=== PATIENT | female | born 1950 | race Caucasian/White ===

== ENCOUNTER → 2017-08-30 | Outpatient (CLI) | payer MEDICARE ==
[~2017-08-30] MED LIST: CARVEDILOL3.125 MG PO; COUMADIN6 MG PO; FIORINAL 50-321 EACH PO; LIVALO2 MG PO
--- NOTE | 2017-08-30 12:49 | Diagnostic Imaging Report ---
Exam: Head CT without contrast History: Trauma, headache Comparison studies: Head CTs 12/3107/31/2016 and 04/09/2012 Technique: Axial images were obtained from the skull base to the vertex. Coronal and sagittal images reconstructed from the axial data. Intravenous contrast: None Findings: Scalp: No abnormalities. Previous right supraorbital/superolateral paranasal soft tissue hematoma has resolved. Bones: No fractures, blastic or lytic lesions. Brain sulci: Appropriate for age. Ventricles: Normal in size and configuration. No hydrocephalus. Extra-axial spaces: No masses, no fluid collection. Parenchyma: No mass, acute hemorrhage or acute or chronic cortical vascular insults. Sellar/suprasellar region: No abnormalities. Craniocervical junction: Patent foramen magnum. No Chiari one malformation. Incidental findings: Atherosclerotic calcifications in the carotid siphons and in the intradural vertebral arteries. IMPRESSION: No acute abnormalities. Signed by: Dr. Humble Monroy M.D. on 08/30/2017 12:46 PM
== END ==
LOC: CT 10:29
PROVIDERS: ATTEND Family Medicine
DX: G44.309 Post-traumatic headache, unspecified, not intractable (principal)
CPT/HCPCS: 70450

== ENCOUNTER 2019-01-06 14:22 | Emergency (ER) | payer MEDICARE ==
[~2019-01-06] VITALS: Ht 154.9 cm; Wt 97.1 kg
--- OUTSIDE RECORDS SUMMARY | 2019-01-06 14:24 | XMS REPORT ---
Author Author [facility] Address Unknown Phone Unavailable Care Team Providers Care Twister Tender Name Role Phone CHINEDU SHAW Unavailable Unavailable Pauly CHAMPION Unavailable Unavailable Problems This patient has no known problems. Allergies, Adverse Reactions, Alerts This patient has no known allergies or adverse reactions. Medications This patient has no known medications. Results Test Description Test Time Test Comments Text Results Atomic Results Result Comments DIAG MAMM RIGHT JUAN CAD DIGITAL 2018-09-03 10:35:45 - DIAG MAMM RIGHT JUAN CAD DIGITALUNILATERAL RIGHT DIGITAL DIAGNOSTIC MAMMOGRAM 3D/2D WITH CAD: 09/03/2018CLINICAL: Recall from screening. Digital breast tomosynthesis was performed in addition to routine CC and MLO views. Current mammographic images were evaluated by either a [employer] M-Vu or a [employer] ImageChecker CAD (computer aided detection system). Comparison is made to exams dated 08/05/2018 m ammogram, 08/05/2017 mammogram, and 07/31/2016 mammogram - [facility]. 2-D and 3-D diagnostic mammogram of the right breast. The previously seen asymmetry centrally in the retroareolar plane of the right breast partially compresses into the surrounding fibroglandular elements. No underlying architectural distortion or suspicious microcalcifications identified.INCOMPLETE ASSESSMENT: ADDITIONAL IMAGING EVALUATION RECOMMENDEDIndeterminate mammographic findings in the right breast. Additional evaluation with right breast ultrasound is requested and currently in progress.- BREAST ULTRASOUND RIGHTULTRASOUND OF RIGHT BREAST AND RIGHT AXILLA: 09/03/2018Comparison is made to exams dated 08/05/2018 mammogram, 08/05/2017 mammogram, and 07/31/2016 mammogram - [facility]. Ultrasound of the right breast and axilla was performed. Molina scale images of the real-time examination were reviewed. Mild ductal ectasia at the nipple areola complex was seen. No intraductal mass was seen. No additional sonographic findings are seen within the right breast or axilla.IMPRESSION: PROBABLY BENIGN - FOLLOW-UP RECOMMENDEDBenign findings in the right breast ultrasound. No discrete ultrasou nd correlate for mammographic findings. Mammographic findings may represent summation artifact. A follow-up mammogram and an ultrasound in 6 months is recommended to demonstrate stability, and to exclude an evolving process. Ruy cohen/:09/03/2018 10:35:45 Vision Impaired Teacher: Ashley Wallace , [facility] sent: Short Term Follow Up Mammogram BI-RADS: 0 Indeterminate Ultrasound BI-RADS: 3 Probably benign BREAST ULTRASOUND RIGHT 2018-09-03 10:35:45 - DIAG MAMM RIGHT JUAN CAD DIGITALUNILATERAL RIGHT DIGITAL DIAGNOSTIC MAMMOGRAM 3D/2D WITH CAD: 09/03/2018CLINICAL: Recall from screening. Digital breast tomosynthesis was performed in addition to rout ine CC and MLO views. Current mammographic images were evaluated by either a [employer] M-Vu or a [employer]er CAD (computer aided detection system). Comparison is made to exams dated 08/05/2018 mammogram, 08/05/2017 mammogram, and 07/31/2016 mammogram - [facility]. 2-D and 3-D diagnostic mammogram of the right breast. The previously seen asymmetry centrally in the retroareolar plane of the right breast partially compresses into the surrounding fibroglandular elements. No underlying architectural distortion or suspicious microcalcifications identified.INCOMPLETE ASSESSMENT: ADDITIONAL IMAGING EVALUATION RECOMMENDEDIndeterminate mammographic findings in the right breast. Additional evaluation with right breast ultrasound is requested and currently in progress.- BREAST ULTRASOUND RIGHTULTRASOUND OF RIGHT BREAST AND RIGHT AXILLA: 09/03/2018Comparison is made to exams dated 08/05/2018 mammogram, 08/05/2017 mammogram, and [facility]/2016 [facility]. Ultrasound of the right breast and axilla was performed. Molina scale images of the real-time examination were reviewed. Mild ductal ectasia at the nipple areola complex was seen. No intraductal mass was seen. No additional sonographic findings are seen within the right breast or axilla.IMPRESSION: PROBABLY BENIGN - FOLLOW-UP RECOMMENDEDBenign findings in the right breast ultrasound. No discrete ultrasou nd correlate for mammographic findings. Mammographic findings may represent summation artifact. A follow-up mammogram and an ultrasound in 6 months is recommended to demonstrate stability, and to exclude an evolving process. Ruy cohen/:09/03/2018 10:35:45 Vision Impaired Teacher: Ashley Wallace , [facility]OMERYletter sent: Short Term Follow Up Mammogram BI-RADS: 0 Indeterminate Ultrasound BI-RADS: 3 Probably benign SCR MAMM BILATERAL JUAN CAD DIGITAL 2018-08-07 10:30:38 - SCR MAMM BILATERAL JUAN CAD DIGITALBILATERAL DIGITAL SCREENING MAMMOGRAM 3D/2D WITH CAD: 08/05/2018CLINICAL: Asymptomatic. Digital breast tomosynthesis was performed in addition to routine CC and MLO views. Current mammographic images were evaluated by either a [employer]Vu or a [employer] CAD (computer aided detection system). Comparison is made to exams dated 08/05/2017 mammogram, 07/31 mammogram, and 06/15/2015 mammogram - [facility]. There are scattered fibroglandular tissues in both breasts. There is a 1 cm oval asymmetry in the right breast, middle depth, in the retroareolar plane seen on the mediolateral oblique view only, 7 cm from the nipple (RMLO slice 67). There are postsurgical changes in the upper outer right breast from prior excisional biopsy. No other significant masses, calcifications, or other findings are seen in either breast. IMPRESSION: INCOMPLETE ASSESSMENT: ADDITIONAL IMAGING EVALUATION RECOMMENDEDThe 1 cm asymmetry in the retroareolar plane in the middle depth of the right breast is indeterminate. Additional views with possible ultrasound are recommended. Laureen ryder/:08/07/2018 10:30:38 Vision Impaired Teacher: Rosio Tirado , [facility]letter sent: Additional Imaging Mammogram BI-RADS: 0 Indeterminate BREAST ULTRASOUND RIGHT 2018-02-25 08:48:44 - DIAG MAMM RIGHT JUAN CAD DIGITALUNILATERAL RIGHT DIGITAL DIAGNOSTIC MAMMOGRAM 3D/2D WITH CAD: 02/25/2018CLINICAL: 6 Month follow-up. Digital breast tomosynthesis was performed in addition to routine CC and MLO views. Current mammographic images were evaluated by either a [employer] M- Vu or a [employer] ImageChecker CAD (computer aided detection system). Comparison is made to exams dated 08/13/2017 mammogram, 08/05/2017 mammogram, and 07[facility]31/2016 [facility]. There are scattered fibroglandular tissues in the right breast. Mild architectural distortion is again noted in the upper outer quadrant, consistent with postsurgical scarring.Benign secretory calcifications are scattered throughout.No suspicious mass, architectural distortion, malignant type calcification, or lymph node abnormality detected. INCOMPLETE ASSESSMENT: ADDITIONAL IMAGING EVALUATION RECOMMENDEDCorrelation with right breast ultrasound follows as below.- BREAST ULTRASOUND RIGHTULTRASOUND OF RIGHT BREAST AND RIGHT AXILLA: 02/25/2018Comparison is made to exams dated 08/13/2017 mammogram, 08/05/2017 mammogram, and 07/31/2016 mammogram - [facility]. Color flow ultrasound of the right breast and axilla was performed. Molina scale images of the real-time examination were reviewed. Mild ductal ectasia is again noted. No suspicious solid or cystic lesions are identified.No abnormalities were seen sonographically in the right axilla. IMPRESSION: BENIGN - FOLLOW-UP RECOMMENDEDThere is no sonographic evidence of malignancy. Recommend resuming routine screening schedule. Patient will be due for her annual screening exam in 6 months.Marce Pineda M.D. yaq/:02/25/2018 08:48:44 Vision Impaired Teacher: Val Castano , [facility]letter sent: BIRADS 1-2 Combo FU Letter Mammogram BI-RADS: 0 Indeterminate Ultrasound BI-RADS: 2 Benign DIAG MAMM RIGHT JUAN CAD DIGITAL 2018-02-25 08:48:44 - DIAG MAMM RIGHT JUAN CAD DIGITALUNILATERAL RIGHT DIGITAL DIAGNOSTIC MAMMOGRAM 3D/2D WITH CAD: 02/25/2018CLINICAL: 6 Month follow-up. Digital breast tomosynthesis was performed in addition to routine CC and MLO views. Current mammographic images were evaluated by either a [employer] M-Vu or a [employer] ImageChecker CAD (computer aided detection system). Comparison is made to exams dated 08/13/2017 mammogram, 08/05/2017 mammogram, and 07/31/2016 mammogram - [facility] There are scattered fibroglandular tissues in the right breast. Mild architectural distortion is again noted in the upper outer quadrant, consistent with postsurgical scarring.Benign secretory calcifications are scattered throughout.No suspicious mass, architectural distortion, malignant type calcification, or lymph node abnormality detected. INCOMPLETE ASSESSMENT: ADDITIONAL IMAGING EVALUATION RECOMMENDEDCorrelation with right breast ultrasound follows as below.- BREAST ULTRASOUND RIGHTULTRASOUND OF RIGHT BREAST AND RIGHT AXILLA: 02/25/2018Comparison is made to exams dated 08/13/2017 mammogram, 08/05/2017 mammogram, and 07/31/2016 mammogram - [facility] Color flow ultrasound of the right breast and axilla was performed. Molina scale images of the real-time examination were reviewed. Mild ductal ectasia is again noted. No suspicious solid or cystic lesions are identified.No abnormalities were seen sonographically in the right axilla. IMPRESSION: BENIGN - FOLLOW-UP RECOMMENDEDThere is no sonographic evidence of malignancy. Recommend resuming routine screening schedule. Patient will be due for her annual screening exam in 6 months.Marce Pineda M.D. yaq/:02/25/2018 08:48:44 Vision Impaired Teacher: Val Castano , [facility] sent: BIRADS 1-2 Combo FU Letter Mammogram BI-RADS: 0 Indeterminate Ultrasound BI-RADS: [address] BRAIN WO 2017-08-30 12:42:00 [place] [id number] Patient Name: ANNE RIOS MR #: [id number] : 1950 Age/Sex: 66/F Req #: [id number] Adm Physician: Ordered by: CHINEDU SHAW MD Report #: [id number] Location: [place] Room/Bed: Procedure: [id number] CT/CT BRAIN WO Exam Date: 08/30/17 Exam Time: 1055 REPORT STATUS: Signed ADDENDUM #1 Dose modulation, iterative reconstruction, and/or weight based adjustment of the mA/kV was utilized to reduce the radiation dose to as low as reasonably achievable. Signed by: Dr. Harsh Monroy M.D. on 10/01/2017 4:21 PM ORIGINAL REPORT Exam: Head CT without contrast History: Trauma, headache Comparison studies: Head CTs 12/3107/31/2016 and 04/09/2012 Technique: Axial images were obtained from the skull base to the vertex. Coronal and sagittal images reconstructed from the axial data. Intravenous contrast: None Findings: Scalp: No abnormalities. Previous right supraorbital/superolateral paranasal soft tissue hematoma has resolved. Bones: No fractures, blastic or lytic lesions. Brain sulci: Appropriate for age. Ventricles: Normal in size and configuration. No hydrocephalus. Extra-axial spaces: No masses, no fluid collection. Parenchyma: No mass, acute hemorrhage or acute or chronic cortical vascular insults. Sellar/suprasellar region: No abnormalities. Craniocervical junction: Patent foramen magnum. No Chiari one malformation. Incidental findings: Atherosclerotic calcifications in the carotid siphons an d in the intradural vertebral arteries. IMPRESSION: No acute abnormalities. Signed by: Dr. Harsh Monroy M.D. on 08/30/2017 12:46 PM Dictated By: HARSH MONROY MD [id number] Transcribed By: CHRIS on 08/30/17 1246 COPY TO: CHINEDU SHAW MD CT BRAIN WO [place] [address] Patient Name: ANNE RIOS MR #: [id number] : 1950 Age/Sex: 66/F Req #: [id number] Adm Physician: Ordered by: KEVIN CHAMPION MD Report #: [id number] Location: Room/Bed: Procedure: [id number] CT/CT BRAIN WO Exam Date: 12/31/16 Exam Time: 956 REPORT STATUS: Signed Exam: Head CT without contrast History: Syncope, trauma Comparison studies: Head CT 04/09/2012. Technique: Axial images were obtained from the skull base to the vertex. Coronal and sagittal images reconstructed from the axial data. Intravenous contrast: None Findings: Soft tissues: Right supraorbital and superolateral periorbital soft tissue hematoma. Bones: No fractures, blastic or lytic lesions. Brain sulci: Appropriate for age. Ventricles: Normal in size and configuration. No hydrocephalus. Extra- axial spaces: No masses, no fluid collection. Parenchyma: No mass, acute hemorrhage or acute cortical vascular insults. A few scattered subtle hypodensities in the supratentorial white matter are nonspecific and most compatible with chronic small vessel ischemic changes. Incidental anatomical variant prominent perivascular space along the inferior margin of the right lentiform nucleus Sellar/suprasellar region: No abnormalities. Craniocervical junction: Patent foramen magnum. No Chiari one malformation. Incidental findings: Atherosclerotic calcifications in the carotid siphons and intradural vertebral arteries. IMPRESSION: 1. Right supraorbital/superolateral periorbital soft tissue hematoma without underlying fracture. 2. No acute intracranial abnormalities. 3. Mild supratentorial chronic microvascular ischemic changes. Signed by: Dr. Harsh Monroy M.D. on 12/31/2016 10:19 AM Dictated By: HARSH MONROY MD 1019 Transcribed By: CHRIS on 12/31/161018 COPY TO: KEVIN CHAMPION MD
[2019-01-06 16:17] LABS: BASOPHILS # (AUTO) 0.1 (0.0-0.1); BASOPHILS % 0.7 % (0.0-1.0); EOSINOPHILS # (AUTO) 0.1 (0.0-0.4); EOSINOPHILS % 1.5 % (0.0-6.0); HEMATOCRIT 39.8 % (34.2-44.1); HEMOGLOBIN 13.2 g/dL (12.0-16.0); LYMPHOCYTES # (AUTO) 1.7 (1.0-3.2); LYMPHOCYTES % 22.7 % (18.0-39.1); MEAN CORPUSCULAR HEMOGLOBIN 28.9 pg (28-32); MEAN CORPUSCULAR HGB CONC 33.2 g/dL (31-35); MEAN CORPUSCULAR VOLUME 87.1 fL (81-99); MONOCYTES # (AUTO) 0.6 (0.2-0.8); MONOCYTES % 7.8 % (4.4-11.3); NEUTROPHILS % 66.9 % (38.7-80.0); PLATELET COUNT 172 x10e3/uL (140-360); RED BLOOD COUNT 4.57 x10e6/uL (3.6-5.1); RED CELL DISTRIBUTION WIDTH 12.9 % (11.7-14.4)
[2019-01-06 16:29] LABS: PARTIAL THROMBOPLASTIN TIME 54.7 seconds (23.8-35.5)
[2019-01-06 16:30] LABS: INR 5.4; PROTHROMBIN TIME 50.1 seconds (11.9-14.5)
[2019-01-06 16:37] LABS: ALBUMIN 3.8 g/dL (3.5-5.0); ALBUMIN/GLOBULIN RATIO 1.1 (0.8-2.0); ANION GAP 11.5 mmol/L (8-16); CALCIUM 10.1 mg/dL (8.4-10.2); CREATININE, SERUM 0.96 mg/dL (0.57-1.11); POTASSIUM 3.5 mmol/L (3.5-5.1)
== END 2019-01-06 19:35 | disposition home or self-care (01) ==
LOC: ER 14:22
DX: D68.32 Hemorrhagic disorder due to extrinsic circulating anticoagulants (principal)
CPT/HCPCS: 36415; 80053; 85025; 85610; 85730; 86900; 99283

== ENCOUNTER → 2019-01-07 | Outpatient (CLI) | payer MEDICARE ==
[2019-01-07 10:57] LABS: INR 5.78; PROTHROMBIN TIME 52.8 seconds (11.9-14.5)
== END ==
LOC: RAD 09:42
PROVIDERS: ATTEND Family Medicine
DX: Z79.01 Long term (current) use of anticoagulants (principal)
CPT/HCPCS: 36415; 85610

== ENCOUNTER 2019-01-08 05:14 | Emergency (ER) | payer MEDICARE ==
[~2019-01-08] VITALS: Ht 154.9 cm; Wt 97.1 kg
[2019-01-08 05:39] LABS: BASOPHILS % 0.7 % (0.0-1.0); EOSINOPHILS # (AUTO) 0.1 (0.0-0.4); EOSINOPHILS % 1.5 % (0.0-6.0); HEMOGLOBIN 12.8 g/dL (12.0-16.0); LYMPHOCYTES # (AUTO) 1.7 (1.0-3.2); LYMPHOCYTES % 28.1 % (18.0-39.1); MEAN CORPUSCULAR HEMOGLOBIN 28.8 pg (28-32); MEAN CORPUSCULAR HGB CONC 32.8 g/dL (31-35); MEAN CORPUSCULAR VOLUME 87.8 fL (81-99); MONOCYTES # (AUTO) 0.5 (0.2-0.8); MONOCYTES % 7.6 % (4.4-11.3); NEUTROPHILS # (AUTO) 3.6 (2.1-6.9); NEUTROPHILS % 61.6 % (38.7-80.0); PLATELET COUNT 158 x10e3/uL (140-360); RED BLOOD COUNT 4.44 x10e6/uL (3.6-5.1)
[2019-01-08 05:50] LABS: INR 2.72; PROTHROMBIN TIME 29.6 seconds (11.9-14.5)
[2019-01-08 05:51] LABS: PARTIAL THROMBOPLASTIN TIME 41.5 seconds (23.8-35.5)
[2019-01-08 06:03] LABS: ALANINE AMINOTRANSFERASE 17 IU/L (0-55); ALBUMIN 3.4 g/dL (3.5-5.0); ALBUMIN/GLOBULIN RATIO 1.1 (0.8-2.0); ALKALINE PHOSPHATASE 92 IU/L (40-150); ANION GAP 13.9 mmol/L (8-16); BLOOD UREA NITROGEN 15 mg/dL (7-26); BUN/CREATININE RATIO 17 (6-25); CARBON DIOXIDE 21 mmol/L (22-29); CHLORIDE 108 mmol/L (98-107); CREATINE KINASE 191 IU/L (29-168); CREATININE, SERUM 0.88 mg/dL (0.57-1.11); EST GLOMERULAR FILTRATION RATE > 60 ML/MIN (60-); GLUCOSE 101 mg/dL (74-118); POTASSIUM 3.9 mmol/L (3.5-5.1); SODIUM 139 mmol/L (136-145)
[2019-01-08 06:04] LABS: BILIRUBIN,URINE NEGATIVE (NEGATIVE); CLARITY,URINE CLEAR (CLEAR); KETONES,URINE NEGATIVE (NEGATIVE); LEUKOCYTE ESTERASE ,URINE SMALL (NEGATIVE); NITRITE,URINE NEGATIVE (NEGATIVE); PROTEIN,URINE DIPSTICK NEGATIVE (NEGATIVE); URINE UROBILINOGEN 0.2 mg/dL (0.2 - 1)
[2019-01-08 06:09] LABS: COLOR,URINE STRAW (YELLOW)
[2019-01-08 06:29] LABS: BACTERIA,URINE RARE /HPF; EPITHELIAL CELLS,URINE RARE /LPF; RBC,URINE 0-5 /HPF (0-5); WBC,URINE (MAN) 0-5 /HPF (0-5)
--- NOTE | 2019-01-08 06:49 | Diagnostic Imaging Report ---
EXAMINATION: CHEST SINGLE (PORTABLE) INDICATION: SOB, palpitations. COMPARISON: None FINDINGS: TUBES and LINES: None. LUNGS: Lungs are well inflated. There is no evidence of pneumonia or pulmonary edema. PLEURA: No pleural effusion or pneumothorax. HEART AND MEDIASTINUM: The cardiomediastinal silhouette is unremarkable. BONES AND SOFT TISSUES: No acute osseous abnormality. Status post median sternotomy. UPPER ABDOMEN: No free air under the diaphragm. IMPRESSION: No acute radiographic abnormality. Signed by: Dr. Miguel Allen MD on 01/08/2019 6:45 AM
[2019-01-08 07:01] VITALS: BP 146/76
== END 2019-01-08 07:11 | disposition home or self-care (01) ==
LOC: ER 05:14
DX: R00.2 Palpitations (principal); I10 Essential (primary) hypertension; G43.909 Migraine, unspecified, not intractable, without status migrainosus; E78.5 Hyperlipidemia, unspecified; F41.9 Anxiety disorder, unspecified; Z79.01 Long term (current) use of anticoagulants; Z95.2 Presence of prosthetic heart valve
CPT/HCPCS: 36415; 71045; 80053; 81001; 82550; 82553; 83880; 84484; 85025; 85610; 85730; 93005; 99284

== ENCOUNTER → 2019-11-04 | Outpatient (CLI) | payer MEDICARE ==
--- NOTE | 2019-11-04 13:44 | Diagnostic Imaging Report ---
Exam: Head CT without contrast History: Trauma, fall Comparison studies: Head CT 08/30/2017 12/31/2016. Technique: Axial images were obtained from the skull base to the vertex. Coronal and sagittal images reconstructed from the axial data. Dose modulation, iterative reconstruction, and/or weight based adjustment of the mA/kV was utilized to reduce the radiation dose to as low as reasonably achievable. Radiation dose: Total DLP: 921.4 mGy*cm. Estimated effective dose: DLP x 0.015 Intravenous contrast: None Findings: Scalp: No abnormalities. Bones: No fractures, blastic or lytic lesions. Brain sulci: Appropriate for age. Ventricles: Normal in size and configuration. No hydrocephalus. Extra-axial spaces: Focal 8 mm hyperdensity along the left anterior falx with not present on the prior head CT of 08/30/2017 and is most compatible with small acute hyperdense subdural hemorrhage which does not result in significant mass effect. No other mass or fluid collection. Parenchyma: No abnormal densities. No masses, hemorrhage, acute or chronic vascular insults. Sellar/suprasellar region: No abnormalities. Craniocervical junction: Patent foramen magnum. No Chiari one malformation. Incidental findings: Atherosclerotic calcifications in the carotid siphons and intradural vertebral arteries. IMPRESSION: 1. Small acute left frontal parafalcine subdural hemorrhage without significant mass effect. 2. No other acute intracranial abnormalities other changes from the prior head CT of 08/30/2017. Dr. Monroy discussed this critical finding with Dr. Bowie via telephone at 1:35 PM on 11/04/2019 Signed by: Dr. Humble Monroy M.D. on 11/04/2019 1:40 PM
== END ==
LOC: CT 12:31
PROVIDERS: ATTEND Family Medicine
DX: S00.83XA Contusion of other part of head, initial encounter (principal); W19.XXXA Unspecified fall, initial encounter
CPT/HCPCS: 70450

== ENCOUNTER 2019-11-09 20:14 | Emergency (ER) | payer MEDICARE ==
[~2019-11-09] VITALS: Ht 154.9 cm; Wt 97.1 kg
[2019-11-09 21:11] LABS: BASOPHILS # (AUTO) 0.1 (0.0-0.1); BASOPHILS % 0.8 % (0.0-1.0); EOSINOPHILS # (AUTO) 0.1 (0.0-0.4); EOSINOPHILS % 1.6 % (0.0-6.0); HEMATOCRIT 38.1 % (34.2-44.1); HEMOGLOBIN 12.5 g/dL (12.0-16.0); LYMPHOCYTES # (AUTO) 1.4 (1.0-3.2); LYMPHOCYTES % 22.5 % (18.0-39.1); MEAN CORPUSCULAR HEMOGLOBIN 28.6 pg (28-32); MEAN CORPUSCULAR HGB CONC 32.8 g/dL (31-35); MEAN CORPUSCULAR VOLUME 87.2 fL (81-99); MONOCYTES # (AUTO) 0.5 (0.2-0.8); MONOCYTES % 8.6 % (4.4-11.3); NEUTROPHILS # (AUTO) 4.2 (2.1-6.9); NEUTROPHILS % 66.2 % (38.7-80.0); PLATELET COUNT 168 x10e3/uL (140-360); RED BLOOD COUNT 4.37 x10e6/uL (3.6-5.1); RED CELL DISTRIBUTION WIDTH 12.8 % (11.7-14.4)
[2019-11-09 21:18] LABS: INR 1.08; PARTIAL THROMBOPLASTIN TIME 24.7 seconds (23.8-35.5); PROTHROMBIN TIME 14.6 seconds (11.9-14.5)
[2019-11-09 21:27] LABS: ALANINE AMINOTRANSFERASE 18 IU/L (0-55); ALBUMIN/GLOBULIN RATIO 1.5 (0.8-2.0); ALKALINE PHOSPHATASE 85 IU/L (40-150); ANION GAP 13.7 mmol/L (8-16); BLOOD UREA NITROGEN 11 mg/dL (7-26); BUN/CREATININE RATIO 13 (6-25); CALCIUM 9.7 mg/dL (8.4-10.2); CARBON DIOXIDE 26 mmol/L (22-29); CHLORIDE 105 mmol/L (98-107); CREATINE KINASE 112 IU/L (29-168); CREATININE, SERUM 0.88 mg/dL (0.57-1.11); EST GLOMERULAR FILTRATION RATE > 60 ML/MIN (60-); GLUCOSE 96 mg/dL (74-118); POTASSIUM 3.7 mmol/L (3.5-5.1); SODIUM 141 mmol/L (136-145)
[2019-11-09 21:53] LABS: BILIRUBIN,URINE NEGATIVE (NEGATIVE); CLARITY,URINE CLEAR (CLEAR); COLOR,URINE STRAW (YELLOW); KETONES,URINE NEGATIVE (NEGATIVE); LEUKOCYTE ESTERASE ,URINE TRACE (NEGATIVE); NITRITE,URINE NEGATIVE (NEGATIVE); PROTEIN,URINE DIPSTICK NEGATIVE (NEGATIVE); URINE UROBILINOGEN 0.2 mg/dL (0.2 - 1)
[2019-11-09 22:03] LABS: AMORPHOUS SEDIMENT,URINE FEW (FEW); BACTERIA,URINE FEW /HPF; EPITHELIAL CELLS,URINE FEW /LPF; RBC,URINE 0-5 /HPF (0-5)
--- NOTE | 2019-11-09 22:07 | Diagnostic Imaging Report ---
EXAMINATION: Head CT without contrast. HISTORY:Dizziness, syncope. COMPARISON:Multiple prior studies, most recent CT head from 11/04/2019. TECHNIQUE: Multidetector axial images were obtained from the foramen magnum to the vertex without contrast. The images were reconstructed using brain and bone algorithms. Thin section brain images were reformatted into coronal and sagittal planes. Dose modulation, iterative reconstruction, and/or weight based adjustment of the mA/kV was utilized to reduce the radiation dose to as low as reasonably achievable. Intravenous contrast: None IMAGE QUALITY: Acceptable. FINDINGS: Skull/scalp: No lytic or blastic. lesions. No surgical changes. Parenchyma: Nonspecific few, scattered supratentorial white matter hypodensity are likely related to small vessel ischemic changes. Prominent perivascular space in the inferior aspect of right lentiform nucleus. No acute hemorrhage, mass or acute major vascular territorial infarct. Arteries: No density suggestive of thrombosis. Atherosclerotic calcification in bilateral carotid siphon and V4 segment of the vertebral arteries. Dural sinuses: No abnormal density suggestive of thrombosis. Ventricles: No hydrocephalus or displacement. Extra-axial spaces: Focal 5 mm hyperdensity along the left paramedian aspect of the anterior falx (was [address] brain from 11/04/2019) without significant regional mass effect or surrounding edema represents resolving subdural hemorrhage. Brain volume: Normal for age. Craniocervical junction: No mass, Chiari malformation, or basilar invagination. Sella: No mass. Paranasal/mastoid sinuses: Imaged portions unremarkable. IMPRESSION: 1. No acute intracranial abnormality. 2. Resolving trace acute subdural hemorrhage along the anterior falx. 3. Minimal supratentorial white matter microvascular ischemic changes. Signed by: Dr. Penny Rodarte M.D. on 11/09/2019 10:03 PM
--- OUTSIDE RECORDS SUMMARY | 2019-11-09 22:54 | XMS REPORT | Continuity of Care Document ---
Author Author [facility] t Organization [facility] Address [address] [place] [address] Phone Unavailable Care Team Providers Care Client Care Manager Name Role Phone VALERIA VIEYRA, CHINEDU PCP CHINEDU SHAW Attphys Unavailable Jarod BLACK Attphys Unavailable Ino CHAMPION Attphys Unavailable Payers Payer Name Policy Type Policy Number Effective Date Expiration Date Jyothi barajas [employer] Medicare Replacement [id number] 2018 00:00:00 [facility] Problems Condition Name Condition Details Condition Category Status Onset Date Resolution Date Last Treatment Date Treating Clinician Comments Source Aortic valve disorder Aortic valve disease Problem Active 2015-06 00:00:00 [facility] Chest pain of uncertain etiology Chest pain of uncertain etiolog y Problem Active 2015-06-21 00:00:00 [facility] Chest pain at rest Chest pain at rest Problem Active 2015-06-21 00:00:0 0 [facility] Hypertension Hypertension Problem Active 2015-06-21 00:00:00 [facility] Allergies, Adverse Reactions, Alerts Allergy Name Allergy Type Status Severity Reaction(s) Onset Date Inacti ve Date Treating Clinician Comments Source Penicillins DA Active SV 2019-11-04 00:00:00 [facility] Penicillin Allergy to Substance Active 2016-12-31 00:00:00 [facility] Medications Ordered Medication Name Filled Medication Name Start Date Stop Da te Current Medication? Ordering Clinician Indication Dosage Frequency Signature (SIG) Comments Components Source Butalbital/Aspirin/Caffeine (Fiorinal 50-325-40 Mg Cap charles) 1 Each Capsule Butalbital/Aspirin/Caffeine (Fiorinal 50-325-40 Mg Capsule) 1 Each Capsule Yes 1 As Needed as needed for Headache [facility] Carvedilol 3.125 Mg Tablet Carvedilol 3.125 Mg Tablet Yes 6.25 Twice A Day [facility] Pitavastatin Calcium (Livalo) 2 Mg Tablet Pitavastatin Calcium (Livalo) 2 Mg Tablet Yes 2 Daily [facility] Warfarin Sodium (Coumadin) 6 Mg Tablet Warfarin Sodium (Coumadin ) 6 Mg Tablet Yes 4 Daily [facility] Procedures This patient has no known procedures. Encounters Start Date/Time End Date/Time Encounter Type Admission Type [facility] Care Department Encounter ID Source 2019-01-08 05:14:00 2019-01-08 07:11:00 Departed Emergency Room 1 JITENDRA BLACK [facility] [id number] [facility] 2019-01-07 09:42:00 2019-01-07 09:42:00 Registered Clinic [facility] [id number] [facility] 2019-01-06 14:22:00 2019-01-06 19:35:00 Departed Emergency Room [facility] [id number] [facility] Results Test Description Test Time Test Comments Results Result Comments Source CT BRAIN WO 2019-11-09 21:55:00 [place] [address] Patient Name: ANNE RIOS MR #: [id number] : 1950 Age/Sex: 68/F Req #: [id number] Adm Physician: Ordered by: JITENDRA BLACK MD Report #: [id number] Location: ER Room/Bed: Procedure: [id number] CT/CT BRAIN WO Exam Date: Exam Time: REPORT STATUS: Signed EXAMINATION: Head CT without contrast. HISTORY:Dizziness, syncope. COMPARISON:Multiple prior studies, most recent CT head from 11/04/2019. TECHNIQUE: Multidetector axial images were obtained from the foramen magnum to the vertex without contrast. The images were reconstructed using brain and bone algorithms. Thin section brain images were reformatted into coronal and sagittal planes. Dose modulation, iterative reconstruction, and/or weight based adjustment of the mA/kV was utilized to reduce the radiation dose to as low as reasonably achievable. Intravenous contrast: None IMAGE QUALITY: Acceptable. FINDINGS: Skull/scalp: No lytic or blastic. lesions. No surgical changes. Parenchyma: Nonspecific few, scattered supratentorial white matter hypodensity are likely related to small vessel ischemic changes. Prominent perivascular space in the inferior aspect of right lentiform nucleus. No acute hemorrhage, mass or acute major vascular territorial infarct. Arteries: No density suggestive of thrombosis. Atherosclerotic calcification in bilateral carotid siphon and V4 segment of the vertebral arteries. Dural sinuses: No abnormal density suggestive of thrombosis. Ventricles: No hydrocephalus or displacement. Extra-axial spaces: Focal 5 mm hyperdensity along the left paramedian aspect of the anterior falx (was [address] brain from 11/04/2019) without significant regional mass effect or surrounding edema represents resolving subdural hemorrhage. Brain volume: Normal for age. Craniocervical junction: No mass, Chiari malformation, or basilar invagination. Sella: No mass. Paranasal/mastoid sinuses: Imaged portions unremarkable. IMPRESSION: 1. No acute intracranial abnormality. 2. Resolving trace acute subdural hemorrhage along the anterior falx. 3. Minimal supratentorial white matter microvascular ischemic changes. Signed by: Dr. Penny Rodarte M.D. on 11/09/2019 10:03 PM Dictated By: PENNY RODARTE MD 02 Transcribed By: CHRIS on 11/09/192202 COPY TO: JITENDRA BLACK MD PROTHROMBIN TIME 2019-11-05 15:46:00 Test Item PROTHROMBIN TIME PATIENT (test code = PTP) 14.5 seconds 9.0-14.0 H INTERNATIONAL NORMAL RATIO (test code = INR) 1.3 0.8-1.2 H The therapeutic range for oral anticoagulant therapy formost indications is an international normalized ratio (INR)of between 2.0 and 3.0. The recommended therapeutic INRrange for various clinical situations is listed below: Clinical Situation INR range Pulmonary e mbolism treatment (2.0-3.0)Venous thrombosis treatmentVenous thrombosis prophylaxis (high risk surgery)Prevention of systemic embolism from: Acute myocardial infarction Valvular heart disease Atrial fibrillation Mechanical prosthetic heart valves (2.5-3.5) IS PATIENT ON ANTICOAGULANTS? YLIST ANTICOAGULANTS COUMADIN- CT HEAD/BRAIN W/O [id number] 07:45:00 Name: ANNE RIOS [facility] : 1950 Age/S: 68 / F [address] [facility] Unit #: [id number] Loc: [place] [address] Phys: Beny Osman MD Acct: [id number] Dis Date: Status: ADM IN PHONE #: [phone] Exam Date: 11/05/2019 0410 FAX #: [phone] Reason: f/u falx hyperdensity EXAMS: CPT CODE: [id number] CT HEAD/BRAIN W/O CONT 63441 HISTORY: f/u falx hyperdensity TECHNIQUE: Noncontrast 2.[address] of the head. Automated exposure control for dose reduction. COMPARISON: CT scan of the brain the previous afternoon FINDINGS/ IMPRESSION: There is a 4 mm hyperdensity adjacent to the falx (3/39) that is unchanged in size from the previous examination and may represent a small hemorrhagic focus. No new hemorrhagic foci are seen. No midline shift or mass effect. Bones and sinuses and orbits and mastoid air cells are within normal limits. Location: [facility] at 0745 Reported and signed by: Maksim Burciaga MD CC: Beny Osman MD; Tal Dawkins MD Technologist:ALYCE EATON CTDI: DLP: Trnscb Date/Time: 11/05/2019 (0745) t.SDR.RR31 Orig Print D/T: S: 11/05/2019 (3541) PAGE 1 Signed Report BASIC METABOLIC [id number] 17:22:00* Test Item Value Reference Range Interpretation Comments SODIUM (test code = NA) 141 mmol/L 136-145 N POTASSIUM (test code = K) 3.4 mmol/L 3.5-5.1 L CHLORIDE (test code = CL) 106.0 mmol/L 98-107 N CARBON DIOXIDE (test code = CO2) 30.0 mmol/L 21-32 N ANION GAP (test code = GAP) 8.4 10-20 L GLUCOSE (test code = GLU) 73 mg/dL 74-106 L BLOOD UREA NITROGEN (test code = BUN) 13 mg/dL 7-18 N GLOMERULAR FILTRATION RATE (test code = GFR) > 60 mL/min >=60 Estimated GFR by using Modified MDRD formula.Chronic kidney disease is defined as either kidney damageor GFR <60 mL/min/1.73 m2 for >3 months. CREATININE (test code = CREAT) 0.80 mg/dL 0.55-1.02 N Note change in reference range due to change in reagent. BUN/CREATININE RATIO (test code = BUN/CREA) 15.7 10-20 N CALCIUM (test code = CA) 9.1 mg/dL 8.5-10.1 N HEPATIC FUNCTION [id number] 17:22:00* Test Item Value Reference Range Interpretation Comments TOTAL PROTEIN (test code = PROT) 7.4 gram/dL 6.4-8.2 N ALBUMIN (test code = ALB) 3.8 g/dL 3.4-5.0 N GLOBULIN (test code = GLOB) 3.6 gram/dL 2.7-4.2 N ALBUMIN/GLOBULIN RATIO (test code = A/G) 1.1 0.75-1.50 N BILIRUBIN TOTAL (test code = BILT) 0.40 mg/dL 0.0-1.0 N BILIRUBIN DIRECT (test code = BILD) 0.07 mg/dL 0.0-0.20 N SGOT/AST (test code = AST) 23 IUnit/L 15-37 N SGPT/ALT (test code = ALT) 28 IUnit/L 12-78 N ALKALINE PHOSPHATASE TOTAL (test code = ALKP) 100 IUnit/L 45-117 N Note change in reference range due to change in reagent. PROTHROMBIN [id number] 17:15:00* Test Item Value Reference Range Interpretation Comments PROTHROMBIN TIME PATIENT (test code = PTP) 17.3 seconds 9.0-14.0 H INTERNATIONAL NORMAL RATIO (test code = INR) 1.5 0.8-1.2 H The therapeutic range for oral anticoagulant therapy formost indications is an international normalized ratio (INR)of between 2.0 and 3.0. The recommended therapeutic INRrange for various clinical situations is listed below: Clinical Situation INR range Pulmonary e mbolism treatment (2.0-3.0)Venous thrombosis treatmentVenous thrombosis prophylaxis (high risk surgery)Prevention of systemic embolism from: Acute myocardial infarction Valvular heart disease Atrial fibrillation Mechanical prosthetic heart valves (2.5-3.5) IS PATIENT ON ANTICOAGULANTS? NTHROMBOPLASTIN TIME [id number] 17:15:00* Test Item Value Reference Range Interpretation Comments THROMBOPLASTIN TIME PARTIAL (test code = PTT) 35.5 seconds 23.0-37. 0 N IS PATIENT ON ANTICOAGULANTS? NBASIC METABOLIC [id number] 17:14:00* Test Item Value Reference Range Interpretation Comments SODIUM (test code = NA) 141 mmol/L 136-145 N POTASSIUM (test code = K) 3.4 mmol/L 3.5-5.1 L CHLORIDE (test code = CL) 106.0 mmol/L 98-107 N CARBON DIOXIDE (test code = CO2) mmol/L 21-32 ANION GAP (test code = GAP) 10-20 GLUCOSE (test code = GLU) mg/dL 74-106 BLOOD UREA NITROGEN (test code = BUN) mg/dL 7-18 GLOMERULAR FILTRATION RATE (test code = GFR) mL/min >=60 CREATININE (test code = CREAT) mg/dL 0.55-1.02 BUN/CREATININE RATIO (test code = BUN/CREA) 10-20 CALCIUM (test code = CA) mg/dL 8.5-10.1 HEPATIC FUNCTION [id number] 17:14:00* Test Item Value Reference Range Interpretation Comments TOTAL PROTEIN (test code = PROT) gram/dL 6.4-8.2 ALBUMIN (test code = ALB) g/dL 3.4-5.0 GLOBULIN (test code = GLOB) gram/dL 2.7-4.2 ALBUMIN/GLOBULIN RATIO (test code = A/G) 0.75-1.50 BILIRUBIN TOTAL (test code = BILT) mg/dL 0.0-1.0 BILIRUBIN DIRECT (test code = BILD) mg/dL 0.0-0.20 SGOT/AST (test code = AST) IUnit/L 15-37 SGPT/ALT (test code = ALT) IUnit/L 12-78 ALKALINE PHOSPHATASE TOTAL (test code = ALKP) IUnit/L 45-117 CBC W/O [id number] 17:02:00* Test Item Value Reference Range Interpretation Comments WHITE BLOOD CELL (test code = WBC) 6.5 K/mm3 4.5-12.5 N RED BLOOD CELL (test code = RBC) 4.64 mill/mm3 3.7-5.2 N HEMOGLOBIN (test code = HGB) 13.4 gram/dL 11.5-15.5 N HEMATOCRIT (test code = HCT) 40.9 % 36.0-46.0 N MEAN CELL VOLUME (test code = MCV) 88.1 fL 80-98 N MEAN CELL HGB (test code = MCH) 28.9 picogram 27.0-33.0 N MEAN CELL HGB CONCETRATION (test code = MCHC) 32.8 gram/dL 33.0-36. 0 L RED CELL DISTRIBUTION WIDTH (test code = RDW) 12.8 % 11.6-16. 2 N PLATELET COUNT (test code = PLT) 171 K/mm3 150-450 N MEAN PLATELET VOLUME (test code = MPV) 11.2 fL 6.7-11.0 H - CT C-SPINE W/O [id number] 15:15:00 Name: ANNE RIOS [facility] : 1950 Age/S: 68 / F [address] [facility] Unit #: [id number] Loc: [place] [address] Phys: Tal Dawkins MD Acct: [id number] Dis Date: Status: PRE ER PHONE #: [phone] Exam Date: 11/04/2019 1505 FAX #: [phone] Reason: Neck Pain EXAMS: CPT CODE: [id number] CT C-SPINE W/O CONTRAST 85964 HISTORY: Neck pain. COMPARISON: None available. Location: [facility]. CT cervical spine without contrast: Automated exposure control. No acute fracture of the cervical spine. No prevertebral soft tissue swelling is noted. No canal stenosis. Multilevel mild foraminal stenosis. Multilevel facet hypertrophy. Unremarkable thyroid glands. Superior mediastinum is demonstrating ectatic aortic arch. Lung apices are clear. Anatomic align ment. Vertebral body heights are maintained. Disc spaces are preserved. Un covertebral joints are narrowed. IMPRESSION: N o acute fracture. Anatomic alignment. DJD. at 1515 Reported and sig lynn by: Micah Craven M.D. CC: Tal Dawkins MD Technologist:Shyla Hodges RT(R) CTDI: DLP: Trnscb Date/Time: 11/04/2019 (1515) t.EDERR.TH4 Orig Print D/T: S: 11/04/2019 (3231) PAGE 1 Signed Report - CT HEAD/BRAIN W/O [id number] 15:13:00 Name: ANNE RIOS [facility] : 1950 Age/S: 68 / F [address] Unit #: [id number] Loc: [place] [address] Phys: Chante Dawkins MD Acct: [id number] Di s Date: Status: PRE ER PHONE #: Exam Date: 11/04/2019 1500 FAX #: Reason: HEADACHE EXAMS: CPT CODE: [id number] CT HEAD/BRAIN W/O CONT 50824 REASON FOR EXAM: HEADACHE EXAM ORDER DATE: 11/04/2019 2:43 PM Ordering : Tal Dawkins MD Attending:Tal Dawkins MD Location:[facility] PROCEDURE: - CT HEAD/BRAIN W/O CONT COMPARISON: FINDINGS: CT images of the brain were obtained without IV contrast. Dose modulation, iterative reconstruction, and/or weight based adjustment of th e MA/KV was utilized to reduce the radiation dose to as low as reasonably achievable. The brain parenchyma is within normal limits. The gra y-white matter delineation is unremarkable. The ventricles, cisterns, and sulci are unremarkable. There is no evidence of acute infarct. The calvari um is intact. IMPRESSION: Small focal extra-axial hemorrha ge in the area of the midline falx in between the 2 frontal lobes sugges tive of a small focal subarachnoid hemorrhage measuring less than 1 cm. No evidence of mass effect. Chronic right basal ganglia infarct. Dr. Eneida bishop was informed of the findings by telephone at 3:12 PM FOR INTERNAL CODING PURPOSES ONLY RESULT CODE: 1 Electronically Signed by Feliciano Jacobo on at 1513 Reported and signed by: Eris Jacobo M.D. CC: Tal Dawkins MD Technologist:Mahendra Hodges RT(R) CTDI: DLP: Trnscb Date/Time: 020 (1513) t.SDR.VTL Orig Print D/T: S: 11/04/2019 (6586) PAGE 1 Signed Report - XR RIBS UNI W/CXR 3+V [id number] 15:08:00 FAX: Tal Dawkins MD [place]: St: PRE Name: ANNE WEBSTER [facility] : [birth year] Age/S: 68/F [address] [facility] Unit #: [id number] Loc: [place] [address] Phys: Tal Dawkins MD Acct: [id number] Dis Date: Status: PRE ER PHONE #: [phone] Exam Date: 11/04/2019 1459 FAX #: [phone] Reason: Fall, pain EXAMS: CPT CODE: [id number] XR RIBS UNI W/CXR 3+[place] [address] HISTORY: Fall and pain. COMPARISON: None available. Location: [facility]. Chest x- ray and left rib series: 4 views: The lungs are clear of pneumo thorax. No acute infiltrates, effusion or congestion. Cardiac and the medi astinal silhouette are normal. No left rib fracture is noted. IMPRESSION: No left rib fracture. No pneumothorax. The franco gs are clear. 20 at 1508 Reported and signed by: Micah Craven M.D. CC: Tal Dawkins MD Technologist: RT Kear[place](Silva) Trnscrd Cm ate/Time/By: 11/04/2019 (3463) : By: [email or web address] Orig Print D/T: S: 10/13 (9524) [address] BRAIN [id number] 13:29:00 [place] [address] Patient Name: ANNE RIOS MR #: [id number] : 1950 Age/Sex: 68/F Req #: [id number] Adm Physician: Ordered by: CHINEDU SHAW MD Report #: [id number] Location: CT Room/Bed: Procedure: [id number] CT/CT BRAIN WO Exam Date: 11/04/19 Exam Time: 1400 REPORT STATUS: Signed Exam: Head CT without contrast History: Trauma, fall Comparison studies: Head CT 08/30/201712/31. Technique: Axial images were obtained from the skull base to the v ertex. Coronal and sagittal images reconstructed from the axial data. Dose modulation, iterative reconstruction, and/or weight based adjustment of the mA /kV was utilized to reduce the radiation dose to as low as reasonably achievab le. Radiation dose: Total DLP: 921.4 mGy*cm. Estimated effective do se: DLP x 0.015 Intravenous contrast: None Findings: Scalp: No abno rmalities. Bones: No fractures, blastic or lytic lesions. Brain sulci: Ap propriate for age. Ventricles: Normal in size and configuration. No hydrocepha [place]. Extra-axial spaces: Focal 8 mm hyperdensity along the left anterior falx with not present on the prior head CT of 08/30/2017 and is most compatible with small acute hyperdense subdural hemorrhage which does not result in significa nt mass effect. No other mass or fluid collection. Parenchyma: No abn ormal densities. No masses, hemorrhage, acute or chronic vascular insults. Sellar/suprasellar region: No abnormalities. Craniocervical junction: Patent foramen magnum. No Chiari one malformation. Incidental findings: Ather osclerotic calcifications in the carotid siphons and intradural vertebral nino augusto. IMPRESSION: 1. Small acute left frontal parafalcine subdural hemorrhage without significant mass effect. 2. No other acute intracranial abnormalities other changes from the prior head CT of 08/30/2017. Dr. Noah hogan discussed this critical finding with Dr. Shaw via telephone at 1:35 PM on 11/04/2019 Signed by: Dr. Harsh Santillan M.D. on 11/04/2019 1:40 PM Dictated By: HARSH SANTILLAN MD 39 Transcribed By: CHRIS on 11/04/19 134 COPY TO: CHINEDU PALENCIA MD SCR MAMM BILATERAL JUAN CAD [id number] 12:48:27 - SCR MAMM BILATERAL JUAN CAD DIGITALBILATERAL DIGITAL SCREENING MAMMOGRAM 3D/2D WITH CAD: 09/22/2019CLINICAL: Asymptomatic. Digital breast tomosynthesis was p erformed in addition to routine CC and MLO views. Current mammographic images w ere evaluated by either a [employer] M-Vu or a [employer] CAD (computer ai ded detection system). Comparison is made to exams dated 08/05/2018 mammogram, 08/05/2017 mammogram, and 07/31/2016 mammogram - [facility]. Ther e are scattered fibroglandular tissues in both breasts. No suspicious mass, arc hitectural distortion, malignant type calcification, or lymph node abnormality d etected. Breast architecture is stable compared to prior exams.IMPRESSION: NEGA TIVEThere is no mammographic evidence of malignancy. Resume annual screening joseph mography in one year. Karan Austin M.D. ss/penrad:09/22/2019 12:4 8:27 Dental Office Manager: Ester PHIPPS, [facility] sent: BIRADS 1-2 Normal Mammogram BI-RADS: 1 NegativeDIAG MAMM RIGHT JUAN CAD [id number] 09:38:47 - DIAG MAMM RIGHT JUAN CAD DIGITALUNILATERAL RIGHT DIGITAL DIAGNOSTIC MAMMOGRAM 3D/2D WITH CAD: 01/30/2019CLINICAL: 6 Month follow- up. Digital breast tomosynthesis was performed in addition to routine CC and MLO views. Current mammographic images were evaluated by either a [employer] M-Vu or a [employer] CAD (computer aided detection system). Comparison is made to exams dated 09/03/2018 mammogram, 08/05/2018 mammogram, and 02/25/2018 mammogram - [facility] There are scattered fibroglandular tissues in the right breast. Previously described asymmetry is not seen on today's tomosynthesis views, benign. No suspicious mass, architectural distortion, malignant type calcification, or lymph node abnormality detected. IMPRESSION: NEGATIVEThere is no mammographic evidence of malignancy. Return to screening mammography which is due in 6 months.Karan Austin M.D. ss/:01/30/2019 09:38:47 Dental Office Manager: Tracey PHIPPS, [facility] sent: BIRADS 1-2 Normal Mammogram BI-RADS: 1 NegativeB-Type Natriuretic [id number] 06:54:00* Test Item Value Reference Range Interpretation Comments B-Type Natriuretic Peptide (test code = 67862-2) 91.7 0-100 [facility] SINGLE (PORTABLE)2019-01-08 06:44:00 [facility] [address] [place] [address] Patient Name: ANNE RIOS MR #: [id number] : 1950 Age/Sex: 68/F Req #: [id number] Adm Physician: Ordered by: JITENDRA BLACK MD Report #: [id number] Location: ER Room/Bed: Procedure: 1128-0 008 DX/CHEST SINGLE (PORTABLE) Exam Date: 01/08/19 E xam Time: 0530 REPORT STATUS: Leonora d EXAMINATION: CHEST SINGLE (PORTABLE) INDICATION: SOB, palpitation s. COMPARISON: None FINDINGS: TUBES and LINES: None. ESTHELA NGS: Lungs are well inflated. There is no evidence of pneumonia or pulmonary edema. PLEURA: No pleural effusion or pneumothorax. HEART AND MEDIA STINUM: The cardiomediastinal silhouette is unremarkable. BONES AND SO FT TISSUES: No acute osseous abnormality. Status post median sternotomy. UPPER ABDOMEN: No free air under the diaphragm. IMPRESSION: No acu te radiographic abnormality. Signed by: Dr. Anshul Leep MD on 01/08/2019 6 :45 AM Dictated By: ANSHUL LEPE MD 4 Transcribed By: CHRIS on 01/08/19644 COPY TO: JITENDRA CHACKO MD Urine [id number] 06:29:00* Test Item Value Reference Range Interpretation Comments Urine WBC (test code = 5821-4) 0-5 0-5 [id number] 06:29:00* Test Item Value Reference Range Interpretation Comments Urine RBC (test code = 33888-7) 0-5 0-5 [facility] [id number] 06:29:00* Test Item Value Reference Range Interpretation Comments Urine Bacteria (test code = 13177-0) RARE NONE [facility] Epithelial [id number] 06:29:00 * Test Item Value Reference Range Interpretation Comments Urine Epithelial Cells (test code = 92123-6) RARE NONE [facility] [id number] 06:09:00* Test Item Value Reference Range Interpretation Comments Urine Color (test code = 5778-6) STRAW YELLOW [facility] [id number] 06:09:00* Test Item Value Reference Range Interpretation Comments Urine Clarity (test code = 21707-8) CLEAR CLEAR [facility] Specific [id number] 06:09:00 * Test Item Value Reference Range Interpretation Comments Urine Specific [place] (test code = 5811-5) 1.010 1.010-1.02 5 [facility] [id number] 06:09:00* Test Item Value Reference Range Interpretation Comments Urine pH (test code = 41636-6) 7 5-7 [facility] Leukocyte [id number] 06:09:00* Test Item Value Reference Range Interpretation Comments Urine Leukocyte Esterase (test code = 92507-2) SMALL NEGATIV E [facility] [id number] 06:09:00* Test Item Value Reference Range Interpretation Comments Urine Nitrite (test code = 91923-5) NEGATIVE NEGATIVE [facility] [id number] 06:09:00* Test Item Value Reference Range Interpretation Comments Urine Protein (test code = 52067-1) NEGATIVE NEGATIVE [facility] Glucose (UA)2019-01-08 06:09:00* Test Item Value Reference Range Interpretation Comments Urine Glucose (UA) (test code = 15643-5) NEGATIVE NEGATIVE [facility] [id number] 06:09:00* Test Item Value Reference Range Interpretation Comments Urine Ketones (test code = 39393-9) NEGATIVE NEGATIVE [facility] Aalyyjgiznwa1552-06-56 06:09:00* Test Item Value Reference Range Interpretation Comments Urine Urobilinogen (test code = 04478-7) 0.2 0.2-1 [facility] [id number] 06:09:00* Test Item Value Reference Range Interpretation Comments Urine Bilirubin (test code = 1977-8) NEGATIVE NEGATIVE [facility] [id number] 06:09:00* Test Item Value Reference Range Interpretation Comments Urine Blood (test code = 63054-6) [facility]GATIVE [facility] [id number] 06:08:00* Test Item Value Reference Range Interpretation Comments Sodium Level (test code = 2951-2) 139 136-145 [facility] Gmqgb6023-03-66 06:08:00* Test Item Value Reference Range Interpretation Comments Potassium Level (test code = 2823-3) 3.9 3.5-5.1 [facility] [id number] 06:08:00* Test Item Value Reference Range Interpretation Comments Chloride Level (test code = 2075-0) 108 98-107 H [facility] CenterCarbon Dioxide Qzqlc2344-75-84 06:08:00* Test Item Value Reference Range Interpretation Comments Carbon Dioxide Level (test code = 2028-9) 21 22-29 L [facility] CenterAnion Vmz1462-70-49 06:08:00* Test Item Value Reference Range Interpretation Comments Anion Gap (test code = 69607-6) 13.9 8-16 [facility] CenterBlood Urea Hsoenyza3115-43-84 06:08:00* Test Item Value Reference Range Interpretation Comments Blood Urea Nitrogen (test code = 3094-0) 15 7-26 [facility] CenterCreatinine2019-11-28 06:08:00* Test Item Value Reference Range Interpretation Comments Creatinine (test code = 2160-0) 0.88 0.57-1.11 [facility] CenterBUN/Creatinine Hpxak3045-09-31 06:08:00* Test Item Value Reference Range Interpretation Comments BUN/Creatinine Ratio (test code = 3097-3) 17 6-25 [facility] CenterEstimat Glomerular Filtration Rate 2019-01-08 06:08:00* Test Item Value Reference Range Interpretation Comments Estimat Glomerular Filtration Rate (test code = 912583021) > 60 >60 Ranges were taken from the National Kidney Disease Education Program and the [facility] Foundation literature.Reference ranges:60 or greater: Szjsio19-55 ( for 3 consecutive months): Chronic kidney disease 15 or less: Kidney failureBrooke Army Medical CenterGlucose Bokmt6265-08-17 06:08:00* Test Item Value Reference Range Interpretation Comments Glucose Level (test code = PXP3301) 101 74-118 [facility] CenterCalcium Osrgh9437-63-12 06:08:00* Test Item Value Reference Range Interpretation Comments Calcium Level (test code = 15695-4) 9.0 8.4-10.2 [facility] CenterTotal Tzzxezqry9087-04-72 06:08:00* Test Item Value Reference Range Interpretation Comments Total Bilirubin (test code = 1975-2) 0.3 0.2-1.2 [facility] CenterAspartate Amino Transf (AST/SGOT) 2019-01-08 06:08:00* Test Item Value Reference Range Interpretation Comments Aspartate Amino Transf (AST/SGOT) (test code = Aspartate Amino Transf (AST/SGOT)) 20 5-34 [facility] CenterAlanine Aminotransferase (ALT/SGPT) 2019-01-08 06:08:00* Test Item Value Reference Range Interpretation Comments Alanine Aminotransferase (ALT/SGPT) (test code = 1742-6) 17 0-55 [facility] CenterTotal Dmjbskn2065-33-19 06:08:00* Test Item Value Reference Range Interpretation Comments Total Protein (test code = 2885-2) 6.5 6.5-8.1 [facility] CenterAlbumin2019-11-28 06:08:00* Test Item Value Reference Range Interpretation Comments Albumin (test code = 1751-7) 3.4 3.5-5.0 L [facility] CenterGlobulin2019-11-28 06:08:00* Test Item Value Reference Range Interpretation Comments Globulin (test code = 39895-7) 3.1 2.3-3.5 [facility] CenterAlbumin/Globulin Usdxp8759-87-96 06:08:00 * Test Item Value Reference Range Interpretation Comments Albumin/Globulin Ratio (test code = 1759-0) 1.1 0.8-2.0 [facility] CenterAlkaline Pqvbuhypyth0166-21-54 06:08:00* Test Item Value Reference Range Interpretation Comments Alkaline Phosphatase (test code = 6768-6) 92 40-150 [facility] CenterCreatine Mfuohj3918-20-68 06:08:00* Test Item Value Reference Range Interpretation Comments Creatine Kinase (test code = 2157-6) 191 29-168 H [facility] CenterCreatine Kinase BW5821-57-27 06:08:00* Test Item Value Reference Range Interpretation Comments Creatine Kinase MB (test code = 61137-8) 3.40 0-5.0 [facility] CenterTroponin A1747-15-65 06:08:00* Test Item Value Reference Range Interpretation Comments Troponin I (test code = KUY3531) 0.015 0-0.300 [facility] CenterProthrombin Ekmr7083-80-26 05:51:00* Test Item Value Reference Range Interpretation Comments Prothrombin Time (test code = 5902-2) 29.6 11.9-14.5 H [facility] CenterProthromb Time International Ratio 2019-01-08 05:51:00* Test Item Value Reference Range Interpretation Comments Prothromb Time International Ratio (test code = 6301-6) 2.72 Oral Anticoagulant Therapy INR Values:1. Low Intensity Therapy 1.5 - 2.02 . Moderate Intensity Therapy 2.0 - 3.03. High Intensity Therapy(1) 2.5 - 3. 54. High Intensity Therapy(2) 3.0 - 4.05. Panic Value INR > 5.0 [facility] CenterActivated Partial Thromboplast Time 2019-01-08 05:51:00* Test Item Value Reference Range Interpretation Comments Activated Partial Thromboplast Time (test code = 10830-6) 41.5 23.8-35.5 H [facility] CenterWhite Blood Sjfmb7427-52-62 05:49:00* Test Item Value Reference Range Interpretation Comments White Blood Count (test code = 6690-2) 5.91 4.8-10.8 [facility] CenterRed Blood Rdbhn5395-53-42 05:49:00* Test Item Value Reference Range Interpretation Comments Red Blood Count (test code = 789-8) 4.44 3.6-5.1 [facility] CenterHemoglobin2019-11-28 05:49:00* Test Item Value Reference Range Interpretation Comments Hemoglobin (test code = 06537-8) 12.8 12.0-16.0 [facility] CenterHematocrit2019-11-28 05:49:00* Test Item Value Reference Range Interpretation Comments Hematocrit (test code = 4544-3) 39.0 34.2-44.1 [facility] CenterMean Corpuscular Dhrjcp3383-55-03 05:49:00* Test Item Value Reference Range Interpretation Comments Mean Corpuscular Volume (test code = 787-2) 87.8 81-99 [facility] CenterMean Corpuscular Mkysvqtfcc0254-57-75 05:49:00* Test Item Value Reference Range Interpretation Comments Mean Corpuscular Hemoglobin (test code = 785-6) 28.8 28-32 [facility] CenterMean Corpuscular Hemoglobin Concent 2019-01-08 05:49:00* Test Item Value Reference Range Interpretation Comments Mean Corpuscular Hemoglobin Concent (test code = 786-4) 32.8 31-35 [facility] CenterRed Cell Distribution Nmbzj1676-22-21 05:49:00* Test Item Value Reference Range Interpretation Comments Red Cell Distribution Width (test code = 05611-6) 13.0 11.7 -14.4 [facility] CenterPlatelet Rxrwj4608-11-93 05:49:00* Test Item Value Reference Range Interpretation Comments Platelet Count (test code = 777-3) 158 140-360 [facility] CenterNeutrophils (%) (Auto)2019-01-08 05:49:00 * Test Item Value Reference Range Interpretation Comments Neutrophils (%) (Auto) (test code = 75041-2) 61.6 38.7-80.0 [facility] CenterLymphocytes (%) (Auto)2019-01-08 05:49:00 * Test Item Value Reference Range Interpretation Comments Lymphocytes (%) (Auto) (test code = 736-9) 28.1 18.0-39.1 [facility] CenterMonocytes (%) (Auto)2019-01-08 05:49:00* Test Item Value Reference Range Interpretation Comments Monocytes (%) (Auto) (test code = 5905-5) 7.6 4.4-11.3 [facility] CenterEosinophils (%) (Auto)2019-01-08 05:49:00 * Test Item Value Reference Range Interpretation Comments Eosinophils (%) (Auto) (test code = 713-8) 1.5 0.0-6.0 [facility] CenterBasophils (%) (Auto)2019-01-08 05:49:00* Test Item Value Reference Range Interpretation Comments Basophils (%) (Auto) (test code = 706-2) 0.7 0.0-1.0 [facility] CenterIM GRANULOCYTES %2019-01-08 05:49:00* Test Item Value Reference Range Interpretation Comments IM GRANULOCYTES % (test code = IM GRANULOCYTES %) 0.5 0.0- 1.0 [facility] CenterNeutrophils # (Auto)2019-01-08 05:49:00* Test Item Value Reference Range Interpretation Comments Neutrophils # (Auto) (test code = 751-8) 3.6 2.1-6.9 [facility] CenterLymphocytes # (Auto)2019-01-08 05:49:00* Test Item Value Reference Range Interpretation Comments Lymphocytes # (Auto) (test code = 84022-0) 1.7 1.0-3.2 [facility] CenterMonocytes # (Auto)2019-01-08 05:49:00* Test Item Value Reference Range Interpretation Comments Monocytes # (Auto) (test code = 742-7) 0.5 0.2-0.8 [facility] CenterEosinophils # (Auto)2019-01-08 05:49:00* Test Item Value Reference Range Interpretation Comments Eosinophils # (Auto) (test code = 711-2) 0.1 0.0-0.4 [facility] CenterBasophils # (Auto)2019-01-08 05:49:00* Test Item Value Reference Range Interpretation Comments Basophils # (Auto) (test code = 704-7) 0.0 0.0-0.1 [facility] CenterAbsolute Immature Granulocyte (auto 2019-01-08 05:49:00* Test Item Value Reference Range Interpretation Comments Absolute Immature Granulocyte (auto (ana t code = Absolute Immature Granulocyte (auto) 0.03 0-0.1 [facility] Mhcte7692-92-67 16:40:00* Test Item Value Reference Range Interpretation Comments Sodium Level (test code = 2951-2) 137 136-145 [facility] CenterPotassium Kpsjl7321-31-59 16:40:00* Test Item Value Reference Range Interpretation Comments Potassium Level (test code = 2823-3) 3.5 3.5-5.1 [facility] CenterChloride Iqvsj5347-78-95 16:40:00* Test Item Value Reference Range Interpretation Comments Chloride Level (test code = 2075-0) 103 98-107 [facility] CenterCarbon Dioxide Gsrlt6731-70-54 16:40:00* Test Item Value Reference Range Interpretation Comments Carbon Dioxide Level (test code = 2028-9) 26 22-29 [facility] CenterAnion Bha7372-37-11 16:40:00* Test Item Value Reference Range Interpretation Comments Anion Gap (test code = 69080-2) 11.5 8-16 [facility] CenterBlood Urea Khivjhaw2388-16-11 16:40:00* Test Item Value Reference Range Interpretation Comments Blood Urea Nitrogen (test code = 3094-0) 14 7-26 [facility] CenterCreatinine2019-11-26 16:40:00* Test Item Value Reference Range Interpretation Comments Creatinine (test code = 2160-0) 0.96 0.57-1.11 [facility] CenterBUN/Creatinine Ajpif0693-78-97 16:40:00* Test Item Value Reference Range Interpretation Comments BUN/Creatinine Ratio (test code = 3097-3) 15 6- [facility] CenterEstimat Glomerular Filtration Rate 2019-01-06 16:40:00* Test Item Value Reference Range Interpretation Comments Estimat Glomerular Filtration Rate (test code = 885227346) 58 >60 L Ranges were taken from the National Kidney Disease Education Program and the [facility] Kid[facility] Foundation literature.Reference ranges:60 or greater: Jzfexe35-40 ( for 3 consecutive months): Chronic kidney disease 15 or less: Kidney failureBrooke Army Medical CenterGlucose Lbhwx7621-51-03 16:40:00* Test Item Value Reference Range Interpretation Comments Glucose Level (test code = EKS7872) 86 74-118 [facility] CenterCalcium Eqdfj1621-61-68 16:40:00* Test Item Value Reference Range Interpretation Comments Calcium Level (test code = 58238-4) 10.1 8.4-10.2 [facility] CenterTotal Glbjayoja8173-70-62 16:40:00* Test Item Value Reference Range Interpretation Comments Total Bilirubin (test code = 1975-2) 0.3 0.2-1.2 [facility] CenterAspartate Amino Transf (AST/SGOT) 2019-01-06 16:40:00* Test Item Value Reference Range Interpretation Comments Aspartate Amino Transf (AST/SGOT) (test code = Aspartate Amino Transf (AST/SGOT)) 21 5-34 [facility] CenterAlanine Aminotransferase (ALT/SGPT) 2019-01-06 16:40:00* Test Item Value Reference Range Interpretation Comments Alanine Aminotransferase (ALT/SGPT) (test code = 1742-6) 19 0-55 [facility] CenterTotal Akbuxgi9075-06-64 16:40:00* Test Item Value Reference Range Interpretation Comments Total Protein (test code = 2885-2) 7.2 6.5-8.1 [facility] CenterAlbumin2019-11-26 16:40:00* Test Item Value Reference Range Interpretation Comments Albumin (test code = 1751-7) 3.8 3.5-5.0 [facility] CenterGlobulin2019-11-26 16:40:00* Test Item Value Reference Range Interpretation Comments Globulin (test code = 60418-9) 3.4 2.3-3.5 [facility] CenterAlbumin/Globulin Uviru4388-99-92 16:40:00 * Test Item Value Reference Range Interpretation Comments Albumin/Globulin Ratio (test code = 1759-0) 1.1 0.8-2.0 [facility] CenterAlkaline Iixchdkragu4671-03-89 16:40:00* Test Item Value Reference Range Interpretation Comments Alkaline Phosphatase (test code = 6768-6) 93 40-150 [facility] CenterProthrombin Ertw2238-66-36 16:30:00* Test Item Value Reference Range Interpretation Comments Prothrombin Time (test code = 5902-2) 50.1 11.9-14.5 HH Results repeated and called to KIM WESTFALLIGAN at 1629 on 01/06/19 by GEORGIE EASLEY. Read back and verified.[facility] CenterProthromb Time International Wwyet4794-06-35 16:30:00* Test Item Value Reference Range Interpretation Comments Prothromb Time International Ratio (test code = 6301-6) 5.40 HH Results repeated and called to KIM WESTFALLIGAN at 1629 on 01/06/19 by GEORGIE EASLEY. Read back and verified.Oral Anticoagulant Therapy INR Values:1. Low Int ensity Therapy 1.5 - 2.02. Moderate Intensity Therapy 2.0 - 3.03. High Intensity Therapy(1) 2.5 - 3.54. High Intensity Therapy(2) 3.0 - 4.05. [place] ic Value INR > 5.0[facility] CenterActivated Partial Thromboplast Symv8314-68-93 16:30:00* Test Item Value Reference Range Interpretation Comments Activated Partial Thromboplast Time (test code = 96639-8) 54.7 23.8-35.5 H [facility] CenterWhite Blood Zptop0109-82-84 16:20:00* Test Item Value Reference Range Interpretation Comments White Blood Count (test code = 6690-2) 7.40 4.8-10.8 [facility] CenterRed Blood Cqnvc6536-10-63 16:20:00* Test Item Value Reference Range Interpretation Comments Red Blood Count (test code = 789-8) 4.57 3.6-5.1 [facility] CenterHemoglobin2019-11-26 16:20:00* Test Item Value Reference Range Interpretation Comments Hemoglobin (test code = 32720-7) 13.2 12.0-16.0 [facility] CenterHematocrit2019-11-26 16:20:00* Test Item Value Reference Range Interpretation Comments Hematocrit (test code = 4544-3) 39.8 34.2-44.1 [facility] CenterMean Corpuscular Jsshma8192-57-06 16:20:00* Test Item Value Reference Range Interpretation Comments Mean Corpuscular Volume (test code = 787-2) 87.1 81-99 [facility] CenterMean Corpuscular Adstzklnih0354-37-55 16:20:00* Test Item Value Reference Range Interpretation Comments Mean Corpuscular Hemoglobin (test code = 785-6) 28.9 28-32 [facility] CenterMean Corpuscular Hemoglobin Concent 2019-01-06 16:20:00* Test Item Value Reference Range Interpretation Comments Mean Corpuscular Hemoglobin Concent (test code = 786-4) 33.2 31-35 [facility] CenterRed Cell Distribution Rghgo8092-80-59 16:20:00* Test Item Value Reference Range Interpretation Comments Red Cell Distribution Width (test code = 18580-5) 12.9 11.7 -14.4 [facility] CenterPlatelet Skgct8648-67-03 16:20:00* Test Item Value Reference Range Interpretation Comments Platelet Count (test code = 777-3) 172 140-360 [facility] CenterNeutrophils (%) (Auto)2019-01-06 16:20:00 * Test Item Value Reference Range Interpretation Comments Neutrophils (%) (Auto) (test code = 55483-8) 66.9 38.7-80.0 [facility] CenterLymphocytes (%) (Auto)2019-01-06 16:20:00 * Test Item Value Reference Range Interpretation Comments Lymphocytes (%) (Auto) (test code = 736-9) 22.7 18.0-39.1 [facility] CenterMonocytes (%) (Auto)2019-01-06 16:20:00* Test Item Value Reference Range Interpretation Comments Monocytes (%) (Auto) (test code = 5905-5) 7.8 4.4-11.3 [facility] CenterEosinophils (%) (Auto)2019-01-06 16:20:00 * Test Item Value Reference Range Interpretation Comments Eosinophils (%) (Auto) (test code = 713-8) 1.5 0.0-6.0 [facility] CenterBasophils (%) (Auto)2019-01-06 16:20:00* Test Item Value Reference Range Interpretation Comments Basophils (%) (Auto) (test code = 706-2) 0.7 0.0-1.0 [facility] CenterIM GRANULOCYTES %2019-01-06 16:20:00* Test Item Value Reference Range Interpretation Comments IM GRANULOCYTES % (test code = IM GRANULOCYTES %) 0.4 0.0- 1.0 [facility] CenterNeutrophils # (Auto)2019-01-06 16:20:00* Test Item Value Reference Range Interpretation Comments Neutrophils # (Auto) (test code = 751-8) 5.0 2.1-6.9 [facility] CenterLymphocytes # (Auto)2019-01-06 16:20:00* Test Item Value Reference Range Interpretation Comments Lymphocytes # (Auto) (test code = 91748-4) 1.7 1.0-3.2 [facility] CenterMonocytes # (Auto)2019-01-06 16:20:00* Test Item Value Reference Range Interpretation Comments Monocytes # (Auto) (test code = 742-7) 0.6 0.2-0.8 [facility] CenterEosinophils # (Auto)2019-01-06 16:20:00* Test Item Value Reference Range Interpretation Comments Eosinophils # (Auto) (test code = 711-2) 0.1 0.0-0.4 [facility] CenterBasophils # (Auto)2019-01-06 16:20:00* Test Item Value Reference Range Interpretation Comments Basophils # (Auto) (test code = 704-7) 0.1 0.0-0.1 [facility] CenterAbsolute Immature Granulocyte (auto 2019-01-06 16:20:00* Test Item Value Reference Range Interpretation Comments Absolute Immature Granulocyte (auto (ana t code = Absolute Immature Granulocyte (auto) 0.03 0-0.1 [facility] CenterDIAG MAMM RIGHT JUAN CAD DIGITAL 2018-09-03 10:35:45 - DIAG MAMM RIGHT JUAN CAD DIGITALUNILATERAL RIGHT DIGITAL DIAGNOSTIC MAMMOGRAM 3D/2D WITH CAD: 09/03/2018CLINICAL: Recall from screening. Digital breast tomosynthesis was performed in addition to routine CC and MLO views. Current mammographic images were evaluated by either a [employer] M-Vu or a [employer] ImageChecker CAD (computer aided detection system). Comparison is made to exams dated 08/05/2018 mammogram, 08/05/2017 mammogram, and 07/31/2016 mammogram - [facility]-. 2-D and 3-D diagnostic mammogram of the [...] 08/05/2017 mammogram, and 07/31/2016 mammogram - [facility]-. Ultrasound of the right breast and axilla was performed. Molina scale images of the real-time examination were reviewed. Mild ductal ectasia at the nipple areola complex was seen. No intraductal mass was seen. No additional sonographic findings are seen within the right breast or axilla.IMPRESSION: PROBABLY BENIGN - FOLLOW-UP RECOMMENDEDBenign findings in the right breast ultrasound. No discrete ultrasound correlate for mammographic findings. Mammographic findings may represent summation artifact. A follow-up mammogram and an ultrasound in 6 [facility] is recommended to demonstrate stability, and to exclude an evolving proces sMagdaleno cohen/:09/03/2018 10:35:45 Dental Office Manager : Ashley PHIPPS, [facility]-letter sent: Short Term Follow Up Mammogram BI-RADS: 0 Indeterminate Ultrasound BI-RADS: 3 Probably benignBREAST ULTRASOUND [id number] 10:35:45 - DIAG MAMM RIGHT JUAN CAD DIGITALUNILATERAL RIGHT DIGITAL DIAGNOSTIC MAMMOGRAM 3D/2D WITH CAD: 09/03/2018CLINICAL: Recall from screening. Digital breast tomosynthesis was performed in addition to routine CC and MLO views. Current mammographic images were evaluated by either a [employer] M-Vu or a [employer] ImageChecker CAD (computer aided detection system). Comparison is made to exams dated 08/05/2018 mammogram, 08/05/2017 mammogram, and [facility] 2-D and 3-D diagnostic mammogram of the [...] 08/05/2017 mammogram, and 07/31/2016 mammogram - [facility]-. Ultrasound of the right breast and axilla was performed. Molina scale images of the real-time examination were reviewed. Mild ductal ectasia at the nipple areola complex was seen. No intraductal mass was seen. No additional sonographic findings are seen within the right breast or axilla.IMPRESSION: PROBABLY BENIGN - FOLLOW-UP RECOMMENDEDBenign findings in the right breast ultrasound. No discrete ultrasound correlate for mammographic findings. Mammographic findings may represent summation artifact. A follow-up mammogram and an ultrasound in 6 [facility] is recommended to demonstrate stability, and to exclude an evolving proces sMagdaleno cohen/:09/03/2018 10:35:45 Dental Office Manager : Ashley Wallace , [facility]-letter sent: Short Term Follow Up Mammogram BI-RADS: 0 Indeterminate Ultrasound BI-RADS: 3 Probably benignSCR MAMM BILATERAL JUAN CAD HOCKPSH0170-14-12 10:30:38 - SCR MAMM BILATERAL JUAN CAD DIGITALBILATERAL DIGITAL SCREENING MAMMOGRAM 3D/2D WITH CAD: 08/05/2018CLINICAL: Asymptomatic. Digital breast tomosynthesis was performed in addition to routine CC and MLO views. Current mammographic images were evaluated by either a [employer] M-Vu or a [employer] ImageHaoguihuacker CAD (computer aided detection system). Comparison is made to exams dated 08/05/2017 mammogram, 07/31/2016 mammogram, and 06/15/2015 mammogram - [facility]-. There are scattered fibroglandular tissues in both breasts. There is a 1 cm oval asymmetry in the right breast, middle depth, in the retroareolar plane seen on the mediolateral oblique view only, 7 cm from the nipple (RMLO slice 67). There are postsurgical changes in the upper outer right breast from prior excisional biop sy. No other significant masses, calcifications, or other findings are seen in e ither breast. IMPRESSION: INCOMPLETE ASSESSMENT: ADDITIONAL IMAGING EVALUATION RECOMMENDEDThe 1 cm asymmetry in the retroareolar plane in the middle depth of t he right breast is indeterminate. Additional views with possible ultrasound are recommended. Laureen Grace D.O. al/:08/07/2018 10:30:[address]: Rosio Tirado , [facility]letter sent: Additional Imaging Mammogram BI-RADS: 0 IndeterminateBREAST ULTRASOUND [id number] 08:48:44 - DIAG MAMM RIGHT JUAN CAD DIGITALUNILATERAL RIGHT DIGITAL DIAGNOSTIC MAMMOGRAM 3D/2D WITH CAD: 02/25/2018CLINICAL: 6 Month follow-up. Digital breast tomosynth esis was performed in addition to routine CC and MLO views. Current mammographi c images were evaluated by either a [employer] M-Vu or a Barcodingcker CAD (c omputer aided detection system). Comparison is made to exams dated 08/13/2017 ma mmogram, 08/05/2017 mammogram, and [facility]31/2016 [facility]. There are scattered fibroglandular tissues in the right breast. Mild gabe ectural distortion is again noted in the upper outer quadrant, consistent with p ostsurgical scarring.Benign secretory calcifications are scattered throughout.No suspicious mass, architectural distortion, malignant type calcification, or lym ph node abnormality detected. INCOMPLETE ASSESSMENT: ADDITIONAL IMAGING EVALUAT ION RECOMMENDEDCorrelation with right breast ultrasound follows as below.- BREAS T ULTRASOUND RIGHTULTRASOUND OF RIGHT BREAST AND RIGHT AXILLA: 02/25/2018Comparis on is made to exams dated 08/13/2017 mammogram, 08/05/2017 mammogram, and [facility] Color flow ultrasound of the right br east and axilla was performed. Molina scale images of the real-time examination w ere reviewed. Mild ductal ectasia is again noted. No suspicious solid or cysti c lesions are identified.No abnormalities were seen sonographically in the right axilla. IMPRESSION: BENIGN - FOLLOW-UP RECOMMENDEDThere is no sonographic evid ence of malignancy. Recommend resuming routine screening schedule. Patient janny suresh be due for her annual screening exam in 6 months.Marce Pineda M.D. yaq/:02/25/2018 08:48:44 Dental Office Manager: Vla Castano , [facility]ITALletter sent: BIRADS 1-2 Combo FU Letter Mammogram BI-RADS: 0 Indeterminate Ultrasound BI-RADS: 2 BenignDIAG MAMM RIGHT JUAN CAD DIGITAL 2018-02-25 08:48:44 - DIAG MAMM RIGHT JUAN CAD DIGITALUNILATERAL RIGHT DIGITAL DIAGNOSTIC MAMMOGRAM 3D/2D WITH CAD: 02/25/2018CLINICAL: 6 Month follow-up. Digital breast tomosynthesis was performed in addition to routine CC and MLO views. Current mammographic images were evaluated by either a [employer] M-Vu or a [employer] ImageChecker CAD (computer aided detection system). Comparison is made to exams dated 08/13/2017 mammogram, 08/05/2017 mammogram, and 07/31/2016 [facility]. There are scattered fibroglandular tissues in the [...] 08/05/2017 mammogram, and 07/31/2016 [facility]. Color flow ultrasound of the right breast [...] in 6 months.Marce Pineda M.D. yaq/:02/25/2018 08:48:44 Dental Office Manager: Val Castano FW, The [facility]FWletter sent: BIRADS 1-2 Combo FU Letter Mammogram BI-RADS: 0 Indeterminate Ultrasound BI-RADS: 2 BenignCT BRAIN [id number] 12:42:00 [place] [address] Patient Name: ANNE RIOS MR #: [id number] : 1950 Age/Sex: 66/F Req #: [id number] [facility] Physician: Ordered by: CHINEDU SHAW MD Report #: [id number] Location: CT Room/ Bed: Procedure: [id number] CT/CT BRAIN WO Exam Date: 08/30/17 Exam Time: 1055 REPORT STATUS: Signed ADDENDUM #1 Dose modulation, iterative reconstructi on, and/or weight based adjustment of the mA/kV was utilized to reduce the rad iation dose to as low as reasonably achievable. Signed by: Dr. Harsh hogan M.D. on 10/01/2017 4:21 PM ORIGINAL REPORT Exam: H ead CT without contrast History: Trauma, headache Comparison studies: Head CTs 12/3107/31/2016 and 04/09/2012 Technique: Axial images were obtained from the skull base to the vertex. Coronal and sagittal images reconstructed f rom the axial data. Intravenous contrast: None Findings: Scalp: No a bnormalities. Previous right supraorbital/superolateral paranasal soft tissue hematoma has resolved. Bones: No fractures, blastic or lytic lesions. Bra in sulci: Appropriate for age. Ventricles: Normal in size and configuration. N o hydrocephalus. Extra-axial spaces: No masses, no fluid collection. Par enchyma: No mass, acute hemorrhage or acute or chronic cortical vascular insu lts. Sellar/suprasellar region: No abnormalities. Craniocervical junction : Patent foramen magnum. No Chiari one malformation. Incidental findings: Atherosclerotic calcifications in the carotid siphons and in the intradural vertebral arteries. IMPRESSION: No acute abnormalities. Signed by: Dr. Harsh Santillan M.D. on 08/30/2017 12:46 PM Dictated By: HARSH KELLER MD 1621 Transcr ibed By: CHRIS on 08/30/17 1246 COPY TO: CHINEDU SHAW MD CT BRAIN WO [place] [address] Patient Name: ANNE RIOS MR #: [id number] : 1950 Age/Sex: 66/F Req #: [id number] Adm Physician: Ordered by: KEVIN CHAMPION MD Report #: [id number] Location: ER Room/Bed: Procedure: [id number] CT/CT BRAIN WO Exam Date: 03/02/16 Exam Time: 956 REPORT STATUS: Signed Exam: Head CT without contrast History: Syncope, trauma Comparison studie s: Head CT 04/09/2012. Technique: Axial images were obtained from the sku ll base to the vertex. Coronal and sagittal images reconstructed from the axia l data. Intravenous contrast: None Findings: Soft tissues: Right sup raorbital and superolateral periorbital soft tissue hematoma. Bones: No f ractures, blastic or lytic lesions. Brain sulci: Appropriate for age. Neptali tricles: Normal in size and configuration. No hydrocephalus. Extra-axial space s: No masses, no fluid collection. Parenchyma: No mass, acute hemorrhag e or acute cortical vascular insults. A few scattered subtle hypodensities in the supratentorial white matter are nonspecific and most compatible with chron ic small vessel ischemic changes. Incidental anatomical variant prominent che vascular space along the inferior margin of the right lentiform nucleus S ellar/suprasellar region: No abnormalities. Craniocervical junction: Patent fo ramen magnum. No Chiari one malformation. Incidental findings: Atheroscl erotic calcifications in the carotid siphons and intradural vertebral arteries . IMPRESSION: 1. Right supraorbital/superolateral periorbital soft tissue hematoma without underlying fracture. 2. No acute intracranial ab normalities. 3. Mild supratentorial chronic microvascular ischemic changes . Signed by: Dr. Harsh Santillan M.D. on 12/31/2016 10:19 AM Dictated By: HARSH SANTILLAN MD 1019 Transcribed By: CHRIS on 12/31/16 1019 COPY TO: KEVIN CHAMPION MD
--- NOTE | 2019-11-09 23:05 | NUR ---
PT BROUGHT BACK TO ED8, BEING UPDATED/RE-ASSESSED BY DR. BLACK AT THIS TIME.
--- NOTE | 2019-11-09 23:21 | Emergency Department Note ---
History of Present Illnes History of Present Illness Chief Complaint: General Medicine Complaints History of Present Illness This is a 68 year old female PRESENTS TO ED WITH DIZZINESS AND NAUSEA, PT STATES, "I GOT DIZZY AND KIND OF SLID DOWN THE WALL, THEN I HIT THE TOP OF MY HEAD WHEN I STOOD UP. 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 PT WAS IN [facility] LAST WEEK FOR A SUBDURAL BLEED Historian: Patient Arrival Mode: Car Onset (how long ago): hour(s) (1) Location: HEAD Quality: DIZZINESS, HIT HEAD Radiation: Reports non-radiation Severity: mild Onset quality: sudden Duration (how long): hour(s) (1) Timing of current episode: constant Progression: unchanged Chronicity: recurrent Context: Reports recent illness, Reports other (RECENT SUBDURAL BLEED) Relieving factors: none Exacerbating factors: none Associated symptoms: Reports denies other symptoms Treatments prior to arrival: none Past Medical/Family History Physician Review I have reviewed the patient's past medical and family history. Any updates have been documented here. Past Medical History Recent Fever: No Clinical Suspicion of Infectio: No New/Unexplained Change in Ment: No Past Medical History: Hypertension, Anxiety, Hyperlipedemia Other Medical History: ARTIFICAL HEART VAVLE Past Surgical History: Cholecysctectomy, Hysterectomy Other Surgery: ARTIFICAL HEART VALVE CYSTS REMOVAL Social History Smoking Cessation: Never Smoker Counseling Performed: No Alcohol Use: None Any Illegal Drug Use: No Other Last Tetanus: Unknown Any Pre-Existing Lines (PICC,: No Review of Systems Review of Systems Constitutional: Reports no symptoms EENTM: Reports no symptoms Cardiovascular: Reports no symptoms Respiratory: Reports no symptoms Gastrointestinal: Reports no symptoms Genitourinary: Reports no symptoms Musculoskeletal: Reports no symptoms Integumentary: Reports no symptoms Neurological: Reports as per HPI Psychological: Reports no symptoms Endocrine: Reports no symptoms Hematological/Lymphatic: Reports no symptoms Physical Exam Related Data Allergies: Coded Allergies: Penicillins (Verified Allergy, Unknown, 12/31/16) Triage Vital Signs Vital Signs Date Time Temp Pulse Resp B/P (MAP) Pulse Ox O2 Delivery O2 Flow Rate FiO2 11/09/19 20:35 98.2 63 17 195/94 97 Room Air Vital signs reviewed: Yes Physical Exam CONSTITUTIONAL Constitutional: Present well-developed, Present well-nourished HENT HENT: Present normocephalic, Present atraumatic, Present oropharynx clear/moist, Present nose normal HENT L/R: Present left ext ear normal, Present right ext ear normal EYES Eyes: Reports PERRL, Reports conjunctivae normal NECK Neck: Present ROM normal PULMONARY Pulmonary: Present effort normal, Present breath sounds normal CARDIOVASCULAR Cardiovascular: Present regular rhythm, Present heart sounds normal, Present capillary refill normal, Present normal rate GASTROINTESTINAL Abdominal: Present soft, Present nontender, Present bowel sounds normal GENITOURINARY Genitourinary: Present exam deferred SKIN Skin: Present warm, Present dry MUSCULOSKELETAL Musculoskeletal: Present ROM normal NEUROLOGICAL Neurological: Present alert, Present oriented x 3, Present no gross motor or sensory deficits PSYCHOLOGICAL Psychological: Present mood/affect normal, Present judgement normal Results Laboratory Result Diagram: 11/09/19205111/09/192051 Laboratory Laboratory Tests Test 11/09/19 21:21 11/09/19 20:52 Urine Color Straw (YELLOW) Urine Clarity Clear (CLEAR) Urine pH 7.5 (5 - 7) Urine Specific [place] 1.020 (1.010-1.025) Urine Protein Negative (NEGATIVE) Urine Glucose (UA) Negative (NEGATIVE) Urine Ketones Negative (NEGATIVE) Urine Blood Negative (NEGATIVE) Urine Nitrite Negative (NEGATIVE) Urine Bilirubin Negative (NEGATIVE) Urine Urobilinogen 0.2 mg/dL (0.2 - 1) Urine Leukocyte Esterase Trace (NEGATIVE) Urine RBC 0-5 /HPF (0-5) Urine WBC 6-10 /HPF (0-5) Urine Epithelial Cells Few /LPF (NONE) Urine Amorphous Sediment Few (FEW) Urine Bacteria Few /HPF (NONE) White Blood Count 6.30 x10e3/uL (4.8-10.8) Red Blood Count 4.37 x10e6/uL (3.6-5.1) Hemoglobin 12.5 g/dL (12.0-16.0) Hematocrit 38.1 % (34.2-44.1) Mean Corpuscular Volume 87.2 fL (81-99) Mean Corpuscular Hemoglobin 28.6 pg (28-32) Mean Corpuscular Hemoglobin Concent 32.8 g/dL (31-35) Red Cell Distribution Width 12.8 % (11.7-14.4) Platelet Count 168 x10e3/uL (140-360) Neutrophils (%) (Auto) 66.2 % (38.7-80.0) Lymphocytes (%) (Auto) 22.5 % (18.0-39.1) Monocytes (%) (Auto) 8.6 % (4.4-11.3) Eosinophils (%) (Auto) 1.6 % (0.0-6.0) Basophils (%) (Auto) 0.8 % (0.0-1.0) Neutrophils # (Auto) 4.2 (2.1-6.9) Lymphocytes # (Auto) 1.4 (1.0-3.2) Monocytes # (Auto) 0.5 (0.2-0.8) Eosinophils # (Auto) 0.1 (0.0-0.4) Basophils # (Auto) 0.1 (0.0-0.1) Absolute Immature Granulocyte (auto 0.02 x10e3/uL (0-0.1) Prothrombin Time 14.6 seconds (11.9-14.5) Prothromb Time International Ratio 1.08 Activated Partial Thromboplast Time 24.7 seconds (23.8-35.5) Sodium Level 141 mmol/L (136-145) Potassium Level 3.7 mmol/L (3.5-5.1) Chloride Level 105 mmol/L (98-107) Carbon Dioxide Level 26 mmol/L (22-29) Anion Gap 13.7 mmol/L (8-16) Blood Urea Nitrogen 11 mg/dL (7-26) Creatinine 0.88 mg/dL (0.57-1.11) Estimat Glomerular Filtration Rate > 60 ML/MIN (60-) BUN/Creatinine Ratio 13 (6-25) Glucose Level 96 mg/dL (74-118) Calcium Level 9.7 mg/dL (8.4-10.2) Total Bilirubin 0.3 mg/dL (0.2-1.2) Aspartate Amino Transf (AST/SGOT) 19 IU/L (5-34) Alanine Aminotransferase (ALT/SGPT) 18 IU/L (0-55) Alkaline Phosphatase 85 IU/L (40-150) Creatine Kinase 112 IU/L (29-168) Creatine Kinase MB 1.50 ng/mL (0-5.0) Troponin I 0.017 ng/mL (0-0.300) Total Protein 6.7 g/dL (6.5-8.1) Albumin 4.0 g/dL (3.5-5.0) Globulin 2.7 g/dL (2.3-3.5) Albumin/Globulin Ratio 1.5 (0.8-2.0) Lab results reviewed: Yes Imaging Imaging results reviewed: Yes Impressions Procedure: [id number] CT/CT BRAIN WO Exam Date: Exam Time: REPORT STATUS: Signed EXAMINATION: Head CT without contrast. HISTORY:Dizziness, syncope. COMPARISON:Multiple prior studies, most recent CT head from 11/04/2019. TECHNIQUE: Multidetector axial images were obtained from the foramen magnum to the vertex without contrast. The images were reconstructed using brain and bone algorithms. Thin section brain images were reformatted into coronal and sagittal planes. Dose modulation, iterative reconstruction, and/or weight based adjustment of the mA/kV was utilized to reduce the radiation dose to as low as reasonably achievable. Intravenous contrast: None IMAGE QUALITY: Acceptable. FINDINGS: Skull/scalp: No lytic or blastic. lesions. No surgical changes. Parenchyma: Nonspecific few, scattered supratentorial white matter hypodensity are likely related to small vessel ischemic changes. Prominent perivascular space in the inferior aspect of right lentiform nucleus. No acute hemorrhage, mass or acute major vascular territorial infarct. Arteries: No density suggestive of thrombosis. Atherosclerotic calcification in bilateral carotid siphon and V4 segment of the vertebral arteries. Dural sinuses: No abnormal density suggestive of thrombosis. Ventricles: No hydrocephalus or displacement. Extra-axial spaces: Focal 5 mm hyperdensity along the left paramedian aspect of the anterior falx (was [address] brain from 11/04/2019) without significant regional mass effect or surrounding edema represents resolving subdural hemorrhage. Brain volume: Normal for age. Craniocervical junction: No mass, Chiari malformation, or basilar invagination. Sella: No mass. Paranasal/mastoid sinuses: Imaged portions unremarkable. IMPRESSION: 1. No acute intracranial abnormality. 2. Resolving trace acute subdural hemorrhage along the anterior falx. 3. Minimal supratentorial white matter microvascular ischemic changes. Signed by: Dr. Penny Rodarte M.D. 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 ED physician Date: Nov 09, 2019 Time: 20:58 Rhythm: sinus bradycardia Rate: bradycardia BPM: 57 QRS axis: normal ST segments normal: Yes T waves normal: Yes Other findings: no other findings Clinical Impression: non-specific ECG Assessment & Plan Medical Decision Making MDM PT WITH RECENT SUBDURAL BLEED BECAME DIZZY AGAIN TODAY AND HIT HER HEAD CBC, CMP, CT BRAIN , EKG ORDERED TO EVAL FOR SUBDURAL BLEED, INTRACRANIAL ABNORMALITY, ELECTROLYTE ABNORMALITY CT BRAIN SHOWS SUBDURAL STILL PRESENT BUT SMALLER THAN WHEN SEEN ON 11/04/19, HOWEVER 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 I SPOKE WITH DR MELO AND DR DERAS, TRANSFER PT TO [facility] FOR OBSERVATION Assessment & Plan Final Impression: (1) Dizziness (2) Subdural hemorrhage Depart Disposition: TRANS TO OTHER [facility] Last Vital Signs Date Time Temp Pulse Resp B/P (MAP) Pulse Ox O2 Delivery O2 Flow Rate FiO2 11/09/19 23:06 63 20 178/75 100 Room Air 11/09/19 20:35 98.2 Home Meds Reported Medications Butalbital/Aspirin/Caffeine (FIORINAL 50-325-40 MG CAPSULE) 1 Each Capsule, 1 TAB PO PRN PRN for HEADACHE 12/31/16 Carvedilol (CARVEDILOL) 3.125 Mg Tablet, 6.25 MG PO BID, #60 TAB 12/31/16 Pitavastatin Calcium (LIVALO) 2 Mg Tablet, 2 MG PO DAILY 12/31/16 Warfarin Sodium (COUMADIN) 6 Mg Tablet, 4 MG PO DAILY 09/06/13 JITENDRA BLACK MD Nov 09, 2019 23:21
[2019-11-10 02:34] VITALS: BP 178/75
== END 2019-11-10 00:15 | disposition other institution (70) ==
LOC: ER 22:31
DX: I62.00 Nontraumatic subdural hemorrhage, unspecified (principal); R42 Dizziness and giddiness; R11.0 Nausea; I10 Essential (primary) hypertension; E78.5 Hyperlipidemia, unspecified; F41.9 Anxiety disorder, unspecified
CPT/HCPCS: 36415; 70450; 80053; 81001; 82550; 82553; 84484; 85025; 85610; 85730; 93005; 99284

== ENCOUNTER → 2020-01-21 | Outpatient (CLI) | payer MEDICARE | LOC: CT 17:22 | PROVIDERS: ATTEND Family Medicine | DX: I62.00 Nontraumatic subdural hemorrhage, unspecified (principal) | CPT/HCPCS: 70450 ==

== ENCOUNTER → 2020-04-22 | Outpatient (CLI) | payer MEDICARE | LOC: US 13:31 | PROVIDERS: ATTEND Family Medicine | DX: R22.1 Localized swelling, mass and lump, neck (principal); M79.81 Nontraumatic hematoma of soft tissue | CPT/HCPCS: 71046; 76536 ==

== ENCOUNTER 2020-05-03 00:28 | Emergency (ER) | payer MEDICARE ==
[~2020-05-03] VITALS: Ht 154.9 cm; Wt 81.6 kg
[2020-05-03] MEDS ORDERED: CLONIDINE HCL 0.1 MG TAB PO ONE (01:15)
[2020-05-03] MEDS ORDERED: CLONIDINE HCL 0.1 MG TAB ONE (01:23)
== END 2020-05-03 02:26 | disposition home or self-care (01) ==
LOC: ER 01:11
DX: I10 Essential (primary) hypertension (principal); E78.5 Hyperlipidemia, unspecified; F41.9 Anxiety disorder, unspecified; Z95.0 Presence of cardiac pacemaker
CPT/HCPCS: 99282

== ENCOUNTER → 2020-05-04 | Outpatient (CLI) | payer MEDICARE ==
[~2020-05-04] MED LIST changes: +IOPAMIDOL 300MG/ML 100 ML INFUS..BTL IV ONE; +IOPAMIDOL 370 MG/ML 200 ML INFUS..BTL INJ ONE; +SODIUM CHLORIDE 0.9% 50ML 50 ML ONE
[2020-05-04 10:02] LABS: BLOOD UREA NITROGEN 19 mg/dL (7-26); BUN/CREATININE RATIO 22 (6-25); CREATININE, SERUM 0.85 mg/dL (0.57-1.11); EST GLOMERULAR FILTRATION RATE > 60 ML/MIN (60-)
== END ==
LOC: CT 08:39
PROVIDERS: ATTEND Family Medicine
DX: R22.1 Localized swelling, mass and lump, neck (principal); M79.81 Nontraumatic hematoma of soft tissue
CPT/HCPCS: 36415; 70491; 71260; 82565; 84520; Q9967

== ENCOUNTER 2020-06-03 02:54 | Emergency (ER) | payer MEDICARE ==
[~2020-06-03] VITALS: Ht 154.9 cm; Wt 81.6 kg
[~2020-06-03 02:54] MED LIST changes: -IOPAMIDOL 300MG/ML 100 ML INFUS..BTL IV ONE; -IOPAMIDOL 370 MG/ML 200 ML INFUS..BTL INJ ONE; -SODIUM CHLORIDE 0.9% 50ML 50 ML ONE
== END 2020-06-03 04:20 | disposition home or self-care (01) ==
LOC: ER 03:14
DX: S00.83XA Contusion of other part of head, initial encounter (principal); W18.12XA Fall from or off toilet with subsequent striking against object, initial encounter; Y92.002 Bathroom of unspecified non-institutional (private) residence as the place of occurrence of the external cause; I10 Essential (primary) hypertension; E78.5 Hyperlipidemia, unspecified; F41.9 Anxiety disorder, unspecified; Z95.2 Presence of prosthetic heart valve
CPT/HCPCS: 70450; 93005; 99284

== ENCOUNTER → 2020-12-19 | Outpatient (CLI) | payer MEDICARE | LOC: US 06:48 | PROVIDERS: ATTEND Nurse Practitioner Adult Health | DX: R31.9 Hematuria, unspecified (principal) | CPT/HCPCS: 76700; 76856 ==

== ENCOUNTER 2020-12-21 04:59 | Emergency (ER) | payer MEDICARE ==
[~2020-12-21] VITALS: Ht 154.9 cm; Wt 81.6 kg
[2020-12-21 06:11] LABS: BASOPHILS # (AUTO) 0.1 (0.0-0.1); BASOPHILS % 1.2 % (0.0-1.0); EOSINOPHILS # (AUTO) 0.1 (0.0-0.4); EOSINOPHILS % 2.6 % (0.0-6.0); HEMATOCRIT 38.4 % (34.2-44.1); HEMOGLOBIN 12.7 g/dL (12.0-16.0); LYMPHOCYTES # (AUTO) 1.1 (1.0-3.2); LYMPHOCYTES % 26.4 % (18.0-39.1); MEAN CORPUSCULAR HEMOGLOBIN 28.2 pg (28-32); MEAN CORPUSCULAR HGB CONC 33.1 g/dL (31-35); MEAN CORPUSCULAR VOLUME 85.1 fL (81-99); MONOCYTES # (AUTO) 0.4 (0.2-0.8); MONOCYTES % 10.1 % (4.4-11.3); NEUTROPHILS # (AUTO) 2.5 (2.1-6.9); NEUTROPHILS % 59.5 % (38.7-80.0); PLATELET COUNT 173 x10e3/uL (140-360); RED BLOOD COUNT 4.51 x10e6/uL (3.6-5.1); RED CELL DISTRIBUTION WIDTH 12.9 % (11.7-14.4)
[2020-12-21 06:23] LABS: INR 4.82; PARTIAL THROMBOPLASTIN TIME 52.3 seconds (23.8-35.5)
[2020-12-21 06:24] LABS: CLARITY,URINE CLEAR (CLEAR); COLOR,URINE YELLOW (YELLOW); KETONES,URINE NEGATIVE (NEGATIVE); LEUKOCYTE ESTERASE ,URINE SMALL (NEGATIVE); NITRITE,URINE NEGATIVE (NEGATIVE); PROTEIN,URINE DIPSTICK NEGATIVE (NEGATIVE); URINE UROBILINOGEN 0.2 mg/dL (0.2 - 1)
[2020-12-21 06:26] LABS: PROTHROMBIN TIME 48.8 seconds (11.9-14.5)
[2020-12-21 06:43] LABS: ALBUMIN 3.4 g/dL (3.5-5.0); ALBUMIN/GLOBULIN RATIO 1.1 (0.8-2.0); CALCIUM 8.6 mg/dL (8.4-10.2); CREATININE, SERUM 0.96 mg/dL (0.57-1.11)
[2020-12-21 06:57] LABS: BACTERIA,URINE FEW /HPF; EPITHELIAL CELLS,URINE MODERATE /LPF
[2020-12-21 07:16] LABS: THYROID STIMULATING HORMONE 1.536 uIU/mL (0.350-4.940)
[2020-12-21] MEDS ORDERED: SODIUM CHLORIDE 0.9% 250ML 250 ML ONE (07:16)
[2020-12-21] MEDS ORDERED: IOPAMIDOL 370 MG/ML 200 ML INFUS..BTL INJ ONE (07:16)
[2020-12-21 10:39] VITALS: BP 135/74
== END 2020-12-21 10:11 | disposition home or self-care (01) ==
LOC: ER 05:23
DX: R31.9 Hematuria, unspecified (principal); D68.32 Hemorrhagic disorder due to extrinsic circulating anticoagulants; T45.515A Adverse effect of anticoagulants, initial encounter; I10 Essential (primary) hypertension; E78.5 Hyperlipidemia, unspecified; F41.9 Anxiety disorder, unspecified; Z95.0 Presence of cardiac pacemaker
CPT/HCPCS: 36415; 74178; 80053; 81001; 82550; 82553; 83735; 84443; 84484; 85025; 85610; 85730; 87086; 99284; J7050; Q9967